=== PATIENT | male | born 1990 | race African-American/Black ===

== ENCOUNTER → 2016-09-10 | Outpatient (CLI) | payer MEDICAID | LOC: OD 12:30 | PROVIDERS: ATTEND Physician Assistant | DX: R05 Cough (principal) | CPT/HCPCS: 71020 ==

== ENCOUNTER 2019-04-01 05:36 | Emergency (ER) | payer MEDICAID ==
[2019-04-01] MEDS ORDERED: ONDANSETRON HCL INJ/PF 4 MG/2 ML SDV IV ONE (06:30)
[2019-04-01] MEDS ORDERED: NORMAL SALINE 1000 ML 1,000 ML IV ONE ×2 (06:30→09:35)
[2019-04-01 08:18] LABS: APPEARANCE,URINE SLIGHTLY-CLOUDY; BILIRUBIN,URINE NEGATIVE (NEGATIVE); COLOR,URINE YELLOW; GLUCOSE, URINE 50 mg/dL (NEGATIVE); KETONES,URINE 80 mg/dL (NEGATIVE); LEUKOCYTE ESTERASE,URINE SMALL (NEGATIVE); NITRITE,URINE NEGATIVE (NEGATIVE); PROTEIN,URINE 100 mg/dL (NEGATIVE); URINE SPECIFIC GRAVITY 1.023; UROBILINOGEN,URINE NEGATIVE mg/dL (<2.0)
[2019-04-01 08:39] LABS: HEMATOCRIT 44.1 % (37.9-51.0); HEMOGLOBIN 14.3 g/dL (13.5-17.0); MEAN CORPUSCULAR HEMOGLOBIN 26.9 pg (27.0-33.4); MEAN CORPUSCULAR HGB CONC 32.3 g/dL (32.0-36.0); MEAN CORPUSCULAR VOLUME 83 fl (80-97); PLATELET COUNT 184 10^3/uL (150-450); RED BLOOD COUNT 5.29 10^6/uL (4.35-5.55); RED CELL DISTRIBUTION WIDTH 14.4 % (11.5-14.0); WHITE BLOOD COUNT 12.2 10^3/uL (4.0-10.5)
[2019-04-01 08:55] LABS: BAND NEUTROPHILS % (MANUAL) 1 % (3-5); BASOPHILS % (MANUAL) 0 % (0-2); EOSINOPHILS % (MANUAL) 0 % (0-6); LYMPHOCYTES % (MANUAL) 8 % (13-45); MONOCYTES % (MANUAL) 8 % (3-13); SEGMENTED NEUTROPHILS % (MAN) 83 % (42-78); TOTAL CELLS COUNTED 100
[2019-04-01 08:58] LABS: ANISOCYTOSIS SLIGHT; OVALOCYTES SLIGHT; PLATELET COMMENT ADEQUATE; POIKILOCYTOSIS SLIGHT; POLYCHROMASIA SLIGHT; TOXIC VACUOLATION PRESENT
[2019-04-01 09:03] LABS: ALBUMIN 4.1 g/dL (3.5-5.0); ALKALINE PHOSPHATASE 83 U/L (38-126); ANION GAP 8 (5-19); ASPARTATE AMINO TRANSFERASE 22 U/L (17-59); BILIRUBIN,DIRECT 0.4 mg/dL (0.0-0.4); BILIRUBIN,TOTAL 0.8 mg/dL (0.2-1.3); BLOOD UREA NITROGEN 11 mg/dL (7-20); CALCIUM 9.3 mg/dL (8.4-10.2); CARBON DIOXIDE 26 mmol/L (22-30); CHLORIDE 104 mmol/L (98-107); GLUCOSE 104 mg/dL (75-110); POTASSIUM 4.2 mmol/L (3.6-5.0); TOTAL PROTEIN 6.6 g/dL (6.3-8.2)
[2019-04-01] MEDS ORDERED: METOCLOPRAMIDE HCL INJ/PF 10 MG/2 ML SDV IV ONE (09:34)
[2019-04-01] MEDS ORDERED: METOCLOPRAMIDE HCL INJ/PF 10 MG/2 ML SDV ONE (09:35)
[2019-04-01] MEDS ORDERED: CEFTRIAXONE 1 GM/D5W RTU 1 GM/50 ML RTUPB IV ONE (09:35)
--- NOTE | 2019-04-01 09:36 | ER Document Report ---
ED Medical Screen (RME) - General Chief Complaint: Nausea/Vomiting Stated Complaint: VOMITING Time Seen by Provider: 04/01/19 09:33 Primary Care Provider: FRANK NORTON MD [Primary Care Provider] - Follow up as needed Mode of Arrival: Ambulatory Information source: Patient Notes: Patient is an otherwise healthy 28-year-old male presents emergency department chief complaint of nausea, vomiting and diarrhea that started yesterday. Patient reports he has vomited at least 10 times. Patient denies any fevers. He does report left upper and lower quadrant tenderness. Exam: Mild tenderness to palpation to the left upper and left lower quadrants. At the time of my evaluation patient has Jimmie received 8 mg of Zofran, 1 L of normal saline and he has had lab work performed. He does have mildly elevated white count, no lipase was ordered, lipase added on at this time. Additional antiemetics were ordered and an additional liter of fluids. Encourage patient to stay n.p.o. until seen by main side provider. I have greeted and performed a rapid initial assessment of this patient. A comprehensive ED assessment and evaluation of the patient, analysis of test results and completion of the medical decision making process will be conducted by additional ED providers. I have specifically instructed the patient or family members with the patient to immediately return to any nursing staff should anything change in the patient's condition or with their chief complaint. This medical record was dictated with voice recognizing software. There may be grammatical, syntax errors that are unintended. TRAVEL OUTSIDE OF THE [place] IN LAST 30 DAYS: No - Related Data Allergies/Adverse Reactions: No Known Allergies Allergy (Verified 04/01/19 05:37) Past Medical History - Social History Frequency of alcohol use: Occasional Drug Abuse: None Renal/ Medical History: Denies: Hx Peritoneal Dialysis Psychiatric Medical History: Reports: Hx Depression - Immunizations Immunizations up to date: Yes Hx Diphtheria, Pertussis, Tetanus Vaccination: No Physical Exam - Vital signs Vitals: Pulse Resp BP Pulse Ox 89 28 H 140/67 H 100 04/01/19 05:40 04/01/19 05:40 04/01/19 05:40 04/01/19 05:40 Course - Vital Signs Vital signs: Temp Pulse Resp BP Pulse Ox 89 28 H 140/67 H 100 04/01/19 05:40 04/01/19 05:40 04/01/19 05:40 04/01/19 05:40 - Laboratory Result Diagrams: 04/01/19 08:20 04/01/19 08:20 Laboratory results interpreted by me: 04/01/19 04/01/19 08:00 08:20 WBC 12.2 H MCH 26.9 L RDW 14.4 H Seg Neuts % (Manual) 83 H Band Neutrophils % 1 L Lymphocytes % (Manual) 8 L Abs Neuts (Manual) 10.2 H Urine Protein 100 H Urine Glucose (UA) 50 H Urine Ketones 80 H Ur Leukocyte Esterase SMALL H Doctor's Discharge - Discharge Referrals: FRANK NORTON MD [Primary Care Provider] - Follow up as needed
[2019-04-01] MEDS ORDERED: LORAZEPAM INJ 2 MG/1 ML VIAL IV ONE (10:20)
[2019-04-01] MEDS ORDERED: DEXTROSE 5%-LACTATED RINGERS 1,000 ML IV ONE (10:20)
--- NOTE | 2019-04-01 11:24 | ER Document Report ---
ED GI/ - General Chief Complaint: Nausea/Vomiting Stated Complaint: VOMITING Time Seen by Provider: 04/01/19 09:33 Primary Care Provider: FRANK NORTON MD [Primary Care Provider] - Follow up as needed Mode of Arrival: Ambulatory Information source: Patient, [facility] Records Notes: This 28-year-old male patient comes emergency room complaining of nausea vomiting abdominal pain. He reports his upper abdomen began hurting 2 days ago and the vomiting started last night. He reports he has had 6 episodes of diarrhea since yesterday evening. There is no history of fever. TRAVEL OUTSIDE OF THE [place] IN LAST 30 DAYS: No - Related Data Allergies/Adverse Reactions: No Known Allergies Allergy (Verified 04/01/19 05:37) Past Medical History - General Information source: Patient, [facility] Records - Social History Smoking Status: Current Every Day Smoker Cigarette use (# per day): Yes - 1 PPD Chew tobacco use (# tins/day): No Smoking Education Provided: No Frequency of alcohol use: Occasional Drug Abuse: None Lives with: Friend Family History: Reviewed & Not Pertinent Patient has suicidal ideation: No Patient has homicidal ideation: No Psychiatric Medical History: Reports: Hx Depression Past Surgical History: Reports: None - Immunizations Immunizations up to date: Yes Hx Diphtheria, Pertussis, Tetanus Vaccination: No Review of Systems - Review of Systems Constitutional: No symptoms reported EENT: No symptoms reported Cardiovascular: No symptoms reported Respiratory: No symptoms reported Gastrointestinal: See HPI Musculoskeletal: No symptoms reported Skin: No symptoms reported Hematologic/Lymphatic: No symptoms reported Neurological/Psychological: No symptoms reported Physical Exam - Vital signs Vitals: Pulse Resp BP Pulse Ox 89 28 H 140/67 H 100 04/01/19 05:40 04/01/19 05:40 04/01/19 05:40 04/01/19 05:40 Interpretation: Normal - General General appearance: Alert, Anxious In distress: Moderate Notes: Patient is actively vomiting up liquid and retching. He periodically will calm down and converse, and then began stiffening up and shaking his entire body and seeming unable to talk. - HEENT Head: Normocephalic, Atraumatic Eyes: Normal Pupils: PERRL Neck: Normal - Respiratory Respiratory status: No respiratory distress Breath sounds: Normal - Cardiovascular Rhythm: Regular Heart sounds: Normal auscultation Murmur: No - Abdominal Inspection: Normal Distension: No distension Bowel sounds: Normal Tenderness: Nontender - Back Back: Normal - Extremities General upper extremity: Normal inspection General lower extremity: Normal inspection - Neurological Neuro grossly intact: Yes - Psychological Associated symptoms: Normal affect, Normal mood Course - Re-evaluation Re-evalutation: 04/01/19 11:26 Has settled down quite a bit at this time. His abdomen remains tender in the epigastric region. We will try a GI cocktail and then reevaluate. 04/01/19 12:11 Patient was sleeping after GI cocktail. He is awake and and his epigastric reg ion is not tender now. His urine drug screen is positive for marijuana. His initial vomiting and behavior was quite suspicious for cannabinoid hyperemesis syndrome. - Vital Signs Vital signs: Temp Pulse Resp BP Pulse Ox 89 28 H 140/67 H 100 04/01/19 05:40 04/01/19 05:40 04/01/19 05:40 04/01/19 05:40 - Laboratory Result Diagrams: 04/01/19 08:20 04/01/19 08:20 Laboratory results interpreted by me: 04/01/19 04/01/19 08:00 08:20 WBC 12.2 H MCH 26.9 L RDW 14.4 H Seg Neuts % (Manual) 83 H Band Neutrophils % 1 L Lymphocytes % (Manual) 8 L Abs Neuts (Manual) 10.2 H Urine Protein 100 H Urine Glucose (UA) 50 H Urine Ketones 80 H Ur Leukocyte Esterase SMALL H Discharge - Discharge Clinical Impression: Cannabinoid hyperemesis syndrome GERD (gastroesophageal reflux disease) Qualifiers: Esophagitis presence: esophagitis presence not specified Qualified Code(s): K21.9 - Gastro-esophageal reflux disease without esophagitis Condition: Stable Disposition: HOME, SELF-CARE Additional Instructions: Nausea or Vomiting, Nonspecific Vomiting (or nausea without vomiting) can be caused by many different problems. Of course, it can mean that something's wrong with the stomach, such as "stomach flu," ulcers, or inflammation. But it can also be a symptom of a problem that has nothing to do with the stomach or intestines. Vomiting is common with severe headaches, earaches, and tonsillitis. We see it with pneumonia or heart attacks. Drugs can cause nausea. Many abdominal problems ca use vomiting; for example, gallstones, kidney stones, pancreatitis, and intestinal obstruction (blocked bowels). In most cases, curing the vomiting depends on fixing the problem that caused it. For temporary relief, we may use an anti-nausea medicine. For home use, we can prescribe suppositories, chewable pills, pills that dissolve in the mouth, or liquid anti-nausea drugs. If the vomiting seems to be caused by a problem in the stomach, acid-suppressing drugs may be prescribed as well. It's important to avoid dehydration. Sip clear liquids. Take increasing amounts of fluid over the first 24 hours. Then start small amounts of bland foods (such as dry toast, applesauce, mashed potato). Avoid aspirin, tobacco, and alcohol. Gradually resume your usual diet. If the vomiting worsens, if the problem that's making you vomit worsens, or if there's evidence of bleeding in the stomach (such as black, tarry stool, bloody or black vomit, or lightheadedness), you should return immediately. Call your doctor if you aren't improved in 24 to 36 hours. Your evaluation today suggest that you may be suffering from cannabinoid hyperemesis syndrome. That is a phenomena where people who smoke marijuana have severe bouts of nausea vomiting and abdominal pain. The only way to stop this problem is to completely stop smoking marijuana. Take medication as prescribed for nausea. Drink cool clear liquids today, eat a bland diet. Take antacids between meals for the next few days. Take Prilosec OTC once daily for the next several days. Follow-up with your primary care provider if not improving. RETURN TO THE EMERGENCY ROOM IF ANY NEW OR WORSENING SYMPTOMS. Prescriptions: Metoclopramide HCl [Reglan 10 mg Tablet] 1 tab PO ASDIR PRN #15 tablet PRN Reason: Referrals: FRANK NORTON MD [Primary Care Provider] - Follow up as needed
[2019-04-01] MEDS ORDERED: LIDOCAINE 2% VISCOUS SOLN 20 ML UDCUP PO ONE (11:25)
[2019-04-01] MEDS ORDERED: MAG HYDROX/AL HYDROX/SIMETH SUSP 30 ML UDCUP PO ONE (11:25)
[2019-04-01 11:52] LABS: URINE AMPHETAMINES SCREEN NEGATIVE; URINE BARBITURATES SCREEN NEGATIVE; URINE BENZODIAZEPINES SCREEN NEGATIVE; URINE COCAINE SCREEN NEGATIVE; URINE MARIJUANA (THC) SCREEN UNCONFIRMED POSITIVE; URINE METHADONE SCREEN NEGATIVE; URINE PHENCYCLIDINE SCREEN NEGATIVE
[2019-04-01 12:32] VITALS: BP 132/56
== END 2019-04-01 12:36 | disposition home or self-care (01) ==
LOC: ER 05:36
DX: F12.988 Cannabis use, unspecified with other cannabis-induced disorder (principal); R11.2 Nausea with vomiting, unspecified; K21.9 Gastro-esophageal reflux disease without esophagitis; R10.10 Upper abdominal pain, unspecified; R10.816 Epigastric abdominal tenderness; R19.7 Diarrhea, unspecified; F17.210 Nicotine dependence, cigarettes, uncomplicated
CPT/HCPCS: 36415; 83690; 85025; 80053; 81001; 80307; J3490 ×2; J2060; J2405; J7121; J7030; J0696; 96361; 96365; 96375; 99284; J2765

== ENCOUNTER 2019-04-06 01:53 | Emergency (ER) | payer MEDICAID, OTHER ==
[2019-04-06] MEDS ORDERED: ONDANSETRON HCL INJ/PF 4 MG/2 ML SDV IV ONE (02:54)
[2019-04-06] MEDS ORDERED: NORMAL SALINE 1000 ML 1,000 ML IV ONE (02:54)
--- NOTE | 2019-04-06 02:56 | ER Document Report ---
ED Medical Screen (RME) - General Chief Complaint: Vomiting Stated Complaint: VOMITTING, DIARRHEA Time Seen by Provider: 04/06/19 02:54 Primary Care Provider: FRANK NORTON MD [Primary Care Provider] - Follow up as needed Notes: 28-year-old male, chief complaint of persistent vomiting today and several loose stools. He complains of left upper quadrant pain, he points. He states he thinks he ate questionable food that gave him food poisoning. Family states he cannot keep anything down. Denies hematemesis or hematochezia, denies fever. Denies any surgeries or diagnosed medical problems. He states he had the same thing 5 days ago and he ate something similar. TRAVEL OUTSIDE OF THE [place] IN LAST 30 DAYS: No - Related Data Allergies/Adverse Reactions: No Known Allergies Allergy (Verified 04/01/19 05:37) Past Medical History Renal/ Medical History: Denies: Hx Peritoneal Dialysis Psychiatric Medical History: Reports: Hx Depression - Immunizations Immunizations up to date: Yes Hx Diphtheria, Pertussis, Tetanus Vaccination: No Physical Exam - Vital signs Vitals: Temp Pulse Resp BP Pulse Ox 98.7 F 90 28 H 142/70 H 99 04/06/19 02:01 04/06/19 02:01 04/06/19 02:01 04/06/19 02:01 04/06/19 02:01 - Abdominal Tenderness: Tender - Mild generalized tenderness, worse in the left upper quadrant Course - Re-evaluation Re-evalutation: I have greeted and performed a rapid initial assessment of this patient. A comprehensive ED assessment and evaluation of the patient, analysis of test results and completion of the medical decision making process will be conducted by additional ED providers. - Vital Signs Vital signs: Temp Pulse Resp BP Pulse Ox 98.7 F 90 28 H 142/70 H 99 04/06/19 02:01 04/06/19 02:01 04/06/19 02:01 04/06/19 02:01 04/06/19 02:01 Doctor's Discharge - Discharge Referrals: FRANK NORTON MD [Primary Care Provider] - Follow up as needed
[2019-04-06 03:41] LABS: ABSOLUTE LYMPHOCYTES (AUTO) 1.2 10^3/uL (0.5-4.7); ABSOLUTE MONOCYTES (AUTO) 1.5 10^3/uL (0.1-1.4); ABSOLUTE NEUT (AUTO) 6.6 10^3/uL (1.7-8.2); BASOPHILS % (AUTO) 0.2 % (0-2); HEMATOCRIT 48.9 % (37.9-51.0); HEMOGLOBIN 16.3 g/dL (13.5-17.0); LYMPHOCYTES % (AUTO) 12.4 % (13-45); MEAN CORPUSCULAR HEMOGLOBIN 27.3 pg (27.0-33.4); MEAN CORPUSCULAR HGB CONC 33.3 g/dL (32.0-36.0); MEAN CORPUSCULAR VOLUME 82 fl (80-97); MONOCYTES % (AUTO) 16.1 % (3-13); PLATELET COUNT 243 10^3/uL (150-450); RED BLOOD COUNT 5.96 10^6/uL (4.35-5.55); RED CELL DISTRIBUTION WIDTH 14.2 % (11.5-14.0); SEGMENTED NEUTROPHILS % (AUTO) 71.3 % (42-78); TOTAL CELLS COUNTED % (AUTO) 100 %; WHITE BLOOD COUNT 9.3 10^3/uL (4.0-10.5)
[2019-04-06 03:55] LABS: ALBUMIN 4.5 g/dL (3.5-5.0); ALKALINE PHOSPHATASE 100 U/L (38-126); ANION GAP 16 (5-19); ASPARTATE AMINO TRANSFERASE 21 U/L (17-59); BILIRUBIN,DIRECT 0.3 mg/dL (0.0-0.4); BLOOD UREA NITROGEN 11 mg/dL (7-20); CALCIUM 10.1 mg/dL (8.4-10.2); CARBON DIOXIDE 24 mmol/L (22-30); CHLORIDE 97 mmol/L (98-107); GLUCOSE 108 mg/dL (75-110); POTASSIUM 3.5 mmol/L (3.6-5.0); TOTAL PROTEIN 6.9 g/dL (6.3-8.2)
[2019-04-06] MEDS ORDERED: HYDROCODONE/ACETAMINOPHEN 5-325 MG TABLET PO ONE (05:19)
[2019-04-06] MEDS ORDERED: SUCRALFATE 1 GM TABLET PO ONE (05:19)
[2019-04-06] MEDS ORDERED: PROMETHAZINE HCL 25 MG TABLET PO ONE (05:19)
--- NOTE | 2019-04-06 06:25 | ER Document Report ---
ED GI/ - General Chief Complaint: Vomiting Stated Complaint: VOMITTING, DIARRHEA Time Seen by Provider: 04/06/19 02:54 Primary Care Provider: FRANK NORTON MD [Primary Care Provider] - Follow up as needed Notes: Patient is a 28-year-old male, chief complaint of persistent vomiting today and several loose stools. He complains of left upper quadrant pain, he points. He states he thinks he ate questionable food that gave him food poisoning. Family states he cannot keep anything down. Denies hematemesis or hematochezia, denies fever. Denies any surgeries or diagnosed medical problems. He states he had the same thing 5 days ago and he ate something similar. He does smoke marijuana, no other recreational drugs reported. TRAVEL OUTSIDE OF THE [place] IN LAST 30 DAYS: No - Related Data Allergies/Adverse Reactions: No Known Allergies Allergy (Verified 04/01/19 05:37) Past Medical History - General Information source: Patient - Social History Smoking Status: Unknown if Ever Smoked Frequency of alcohol use: None Drug Abuse: Marijuana Lives with: Family Family History: Reviewed & Not Pertinent Patient has suicidal ideation: No Patient has homicidal ideation: No Renal/ Medical History: Denies: Hx Peritoneal Dialysis Psychiatric Medical History: Reports: Hx Depression - Immunizations Immunizations up to date: Yes Hx Diphtheria, Pertussis, Tetanus Vaccination: No Review of Systems - Review of Systems Constitutional: No symptoms reported EENT: No symptoms reported Cardiovascular: No symptoms reported Respiratory: No symptoms reported Gastrointestinal: See HPI Genitourinary: No symptoms reported Male Genitourinary: No symptoms reported Musculoskeletal: No symptoms reported Skin: No symptoms reported Hematologic/Lymphatic: No symptoms reported Neurological/Psychological: No symptoms reported Physical Exam - Vital signs Vitals: Temp Pulse Resp BP Pulse Ox 98.7 F 90 28 H 142/70 H 99 04/06/19 02:01 04/06/19 02:01 04/06/19 02:01 04/06/19 02:01 04/06/19 02:01 - Notes Notes: GENERAL: Alert, interacts well. No acute distress. HEAD: Normocephalic, atraumatic. EYES: Pupils equal, round, and reactive to light. Extraocular movements intact. ENT: Oral mucosa dry, tongue midline. Oropharynx unremarkable. Airway patent. LUNGS: Clear to auscultation bilaterally, no wheezes, rales, or rhonchi. No respiratory distress. HEART: Regular rate and rhythm. No murmur ABDOMEN: Left upper quadrant tenderness, remaining abdomen is soft and benign. No guarding or rigidity. GENITOURINARY: Deferred EXTREMITIES: Moves all 4 extremities spontaneously. No edema, normal radial and dorsalis pedis pulses bilaterally. No cyanosis. BACK: no cervical, thoracic, lumbar midline tenderness. No saddle anesthesia, normal distal neurovascular exam. Moves all extremities in full range of motion. NEUROLOGICAL: Alert and oriented x3. Normal speech. Cranial nerves II through XII grossly intact. PSYCH: Normal affect, normal mood. SKIN: Warm, dry, normal turgor. No rashes or lesions noted. Course - Re-evaluation Re-evalutation: Patient was vomiting in triage. After IV fluids and Zofran this completely resolved. He does have some left upper quadrant tenderness on his examination but otherwise his abdomen is soft and benign. CBC unremarkable, chemistry and lipase unremarkable. Patient sleeping on reevaluation. Patient was seen here for similar symptoms recently, it was suspected that patient has cyclic vomiting syndrome. Patient actually had easy resolution of his symptoms, the patient at least has a component of gastritis I suspect, I did discuss treatment of this. Patient did have specific questions about this, he was somewhat surprised about the precautions that he should take against this while recovering, he does state understanding and agreement with plan, he was cautioned about marijuana and cyclic vomiting syndrome as well. Patient drank more than a cup of fluid without difficulty and took p.o. medications. Stable at time of discharge. - Vital Signs Vital signs: Temp Pulse Resp BP Pulse Ox 98.6 F 60 12 104/48 L 97 04/06/19 06:30 04/06/19 06:30 04/06/19 06:30 04/06/19 06:30 04/06/19 06:30 - Laboratory Result Diagrams: 04/06/19 03:24 04/06/19 03:24 Laboratory results interpreted by me: 04/06/19 04/06/19 03:24 03:24 RBC 5.96 H RDW 14.2 H Lymphocytes % 12.4 L Monocytes % 16.1 H Absolute Monocytes 1.5 H Potassium 3.5 L Chloride 97 L Discharge - Discharge Clinical Impression: Left upper quadrant pain Vomiting Qualifiers: Vomiting type: unspecified Vomiting Intractability: non-intractable Nausea presence: with nausea Qualified Code(s): R11.2 - Nausea with vomiting, unspecified Condition: Stable Disposition: HOME, SELF-CARE Additional Instructions: Your symptoms and examination indicate gastritis/esophagitis (inflammation of your upper gastrointestinal tract). Take Phenergan for nausea, take Carafate and Pepcid as prescribed to help treat this, you can take additional Rolaids, Tums, Maalox, etc. if needed. You can take Tylenol for pain. Avoid NSAIDs, alcohol, smoking, caffeine, spicy food. Avoid marijuana because this can cause a return of the vomiting. Start with clear fluids, progress to bland diet. Follow-up with primary care for additional evaluation and treatment including possible H. pylori testing. Return if you worsen including uncontrolled vomiti ng, vomiting blood, black stools, severe pain, fever of 100.4 or greater, or any other concerning or worsening symptoms. Prescriptions: Famotidine [Pepcid 20 mg Tablet] 20 mg PO BID #20 tablet Promethazine HCl [Phenergan 25 mg Tablet] 25 mg PO Q6H PRN #15 tablet PRN Reason: Sucralfate [Carafate 1 gm Tablet] 1 gm PO QID #20 tablet Forms: Return to Work Referrals: FRANK NORTON MD [Primary Care Provider] - Follow up as needed
[2019-04-06 06:35] VITALS: BP 104/48
== END 2019-04-06 06:45 | disposition home or self-care (01) ==
LOC: ER 01:53
DX: R11.2 Nausea with vomiting, unspecified (principal); R10.12 Left upper quadrant pain; R10.812 Left upper quadrant abdominal tenderness; R19.4 Change in bowel habit; F12.10 Cannabis abuse, uncomplicated
CPT/HCPCS: 36415; 83690; 85025; 80053; J3490 ×2; J2405; J7030; 96361; 96374; 99284

== ENCOUNTER 2019-05-20 21:09 | Emergency (ER) | payer MEDICAID ==
[2019-05-20] MEDS ORDERED: ONDANSETRON HCL INJ/PF 4 MG/2 ML SDV IV ONE (22:03)
[2019-05-20] MEDS ORDERED: NORMAL SALINE 1000 ML 1,000 ML IV ONE (22:03)
--- NOTE | 2019-05-20 22:03 | ER Document Report ---
ED Medical Screen (RME) - General Chief Complaint: Abdominal Pain Stated Complaint: ABDOMINAL PAIN Time Seen by Provider: 05/20/19 21:58 Primary Care Provider: FRANK NORTON MD [Primary Care Provider] - Follow up as needed Mode of Arrival: Ambulatory Information source: Patient - No so the whole left Notes: 28-year-old male presented to ED for complaint of left abdominal pain upper and lower since 3:00 this morning. He states he has had nausea and vomited x3 and diarrhea stools x8 or 9 since 3 AM. He states he ate last at [employer] about 8:00 last night at bedtime. He states he ate [place] fried chicken potatoes and turnip greens. His friend also ate a [employer] but he ate something different he has not been sick. Any fevers he states he has had chills but no fevers. Patient denies smoking drinking or use of any drugs. He states he has a history of gastrointestinal problems and is scheduled to get a colonoscopy and endoscopy on 24 May. I have greeted and performed a rapid initial assessment of this patient. A comprehensive ED assessment and evaluation of the patient, analysis of test results and completion of medical decision making process will be conducted by an additional ED providers. TRAVEL OUTSIDE OF THE [place] IN LAST 30 DAYS: No - Related Data Allergies/Adverse Reactions: No Known Allergies Allergy (Verified 04/01/19 05:37) Past Medical History Renal/ Medical History: Denies: Hx Peritoneal Dialysis Psychiatric Medical History: Reports: Hx Depression - Immunizations Immunizations up to date: Yes Hx Diphtheria, Pertussis, Tetanus Vaccination: No Physical Exam - Vital signs Vitals: Temp Pulse Resp BP Pulse Ox 98.3 F 107 H 22 H 141/78 H 98 05/20/19 21:31 05/20/19 21:31 05/20/19 21:31 05/20/19 21:31 05/20/19 21:31 Course - Vital Signs Vital signs: Temp Pulse Resp BP Pulse Ox 98.3 F 107 H 22 H 141/78 H 98 05/20/19 21:31 05/20/19 21:31 05/20/19 21:31 05/20/19 21:31 05/20/19 21:31 Doctor's Discharge - Discharge Referrals: FRANK NORTON MD [Primary Care Provider] - Follow up as needed
[2019-05-20 23:44] LABS: ABSOLUTE LYMPHOCYTES (AUTO) 1.2 10^3/uL (0.5-4.7); ABSOLUTE MONOCYTES (AUTO) 0.9 10^3/uL (0.1-1.4); ABSOLUTE NEUT (AUTO) 10.3 10^3/uL (1.7-8.2); BASOPHILS % (AUTO) 0.3 % (0-2); EOSINOPHILS % (AUTO) 0.3 % (0-6); HEMATOCRIT 46.6 % (37.9-51.0); HEMOGLOBIN 15.2 g/dL (13.5-17.0); MEAN CORPUSCULAR HEMOGLOBIN 26.9 pg (27.0-33.4); MEAN CORPUSCULAR HGB CONC 32.6 g/dL (32.0-36.0); MEAN CORPUSCULAR VOLUME 82 fl (80-97); MONOCYTES % (AUTO) 6.8 % (3-13); PLATELET COUNT 262 10^3/uL (150-450); RED BLOOD COUNT 5.65 10^6/uL (4.35-5.55); RED CELL DISTRIBUTION WIDTH 14.7 % (11.5-14.0); SEGMENTED NEUTROPHILS % (AUTO) 82.6 % (42-78); TOTAL CELLS COUNTED % (AUTO) 100 %; WHITE BLOOD COUNT 12.5 10^3/uL (4.0-10.5)
[2019-05-20 23:56] LABS: ALBUMIN 4.8 g/dL (3.5-5.0); ALKALINE PHOSPHATASE 130 U/L (38-126); ANION GAP 11 (5-19); ASPARTATE AMINO TRANSFERASE 109 U/L (17-59); BILIRUBIN,DIRECT 0.2 mg/dL (0.0-0.4); BILIRUBIN,TOTAL 0.6 mg/dL (0.2-1.3); BLOOD UREA NITROGEN 13 mg/dL (7-20); CALCIUM 10.2 mg/dL (8.4-10.2); CARBON DIOXIDE 29 mmol/L (22-30); CHLORIDE 99 mmol/L (98-107); GLUCOSE 102 mg/dL (75-110)
[2019-05-21] MEDS ORDERED: FENTANYL CITRATE INJ/PF 100 MCG/2 ML AMPUL IV ONE (00:08)
[2019-05-21 00:53] LABS: APPEARANCE,URINE SLIGHTLY-CLOUDY; BILIRUBIN,URINE NEGATIVE (NEGATIVE); COLOR,URINE YELLOW; GLUCOSE, URINE NEGATIVE (NEGATIVE); KETONES,URINE 80 mg/dL (NEGATIVE); LEUKOCYTE ESTERASE,URINE NEGATIVE (NEGATIVE); NITRITE,URINE NEGATIVE (NEGATIVE); PROTEIN,URINE 30 mg/dL (NEGATIVE); URINE SPECIFIC GRAVITY 1.029
--- NOTE | 2019-05-21 02:17 | RADIOLOGY REPORT (SQ) ---
EXAM: Ultrasound abdomen limited CLINICAL DATA: 28-year-old male with abdominal pain. TECHNICAL DATA: Limited sonographic imaging of the right upper quadrant was performed on 05/21/2019 at 1:11 AM. Comparison: None. FINDINGS: The liver is normal in size and configuration. The liver demonstrates normal echogenicity. There is a small, avascular 1.8 x 1.2 x 1.5 cm focal area of increased echogenicity in the right hepatic lobe likely representing a small hepatic hemangioma. Doppler imaging reveals patency of the portal vein and normal hepatopedal flow. The gallbladder is well distended and normal in appearance. There is no evidence of cholelithiasis. There is no evidence of gallbladder wall thickening. The gallbladder wall measures 1.3 mm in diameter. There is no pericholecystic fluid or positive sonographic Soto sign as per the technologist. There is no evidence of biliary ductal dilatation. The common bile duct measures 1.4 mm in diameter. The right kidney is normal in size, shape and echogenicity without hydronephrosis or definite nephrolithiasis. The right kidney measures 11.2 x 5.3 x 6.4 cm. There is no evidence of free fluid in the abdomen. The pancreas is grossly normal in size, shape and echogenicity. The aorta is normal in caliber and contour and tapers distally. The inferior vena cava is grossly unremarkable as visualized. IMPRESSION: 1. Small avascular focal area of increased echogenicity in the right hepatic lobe with a maximum dimension of 1.8 cm likely representing a hemangioma. 2. No evidence of acute gallbladder pathology. 3. Otherwise, unremarkable right upper quadrant ultrasound.
[2019-05-21] MEDS ORDERED: FAMOTIDINE INJ/PF 20 MG/2 ML SDV IV ONE (02:52)
[2019-05-21] MEDS ORDERED: PROMETHAZINE HCL INJ 25 MG/1 ML VIAL IV ONE (02:52)
--- NOTE | 2019-05-21 04:06 | ER Document Report ---
ED GI/ - General Chief Complaint: Abdominal Pain Stated Complaint: ABDOMINAL PAIN Time Seen by Provider: 05/20/19 21:58 Primary Care Provider: FRANK NORTON MD [Primary Care Provider] - Follow up as needed Mode of Arrival: Ambulatory Notes: DELLAThien HPI: 28-year-old male presented to ED for complaint of left abdominal pain upper and lower since 3:00 this morning. He states he has had nausea and vomited x3 and diarrhea stools x8 or 9 since 3 AM. He states he ate last at [employer] about 8:00 last night at bedtime. He states he ate [place] fried chicken potatoes and turnip greens. His friend also ate a [employer]rel but he ate something different he has not been sick. Any fevers he states he has had chills but no fevers. Patient denies smoking drinking or use of any drugs. He states he has a history of gastrointestinal problems and is scheduled to get a colonoscopy and endoscopy on 24 May. MY HPI: Patient has been treated with the Zofran upon my assessment. He is dry heaving with bowel noted in emesis basin. Patient voices he has had intermittent epigastric abdominal pain for the last 3 months. States he does have an appointment with gastroenterology for an endoscopy and colonoscopy but they are not until May 24. Patient voices he was told that his vomiting was due to "smoking too much weed." Patient voices he no longer uses marijuana. Patient voices he feels as though this evening he may have had food poisoning after eating at [employer]. Patient's complaining of generalized epigastric abdominal pain upon assessment. Patient voices that he also had 2 episodes of diarrhea today. Patient voices "it was basically black." Patient denies the use of Pepto-Bismol or any other [id number] antidiarrheal or nausea medications. TRAVEL OUTSIDE OF THE [place] IN LAST 30 DAYS: No - Related Data Allergies/Adverse Reactions: No Known Allergies Allergy (Verified 04/01/19 05:37) Past Medical History - General Information source: Patient - Social History Smoking Status: Never Smoker Frequency of alcohol use: None Drug Abuse: None Family History: Reviewed & Not Pertinent Patient has suicidal ideation: No Patient has homicidal ideation: No Renal/ Medical History: Denies: Hx Peritoneal Dialysis Psychiatric Medical History: Reports: Hx Depression - Immunizations Immunizations up to date: Yes Hx Diphtheria, Pertussis, Tetanus Vaccination: No Review of Systems - Review of Systems Constitutional: denies: Fever EENT: No symptoms reported Cardiovascular: No symptoms reported Respiratory: No symptoms reported Gastrointestinal: See HPI Genitourinary: No symptoms reported Male Genitourinary: No symptoms reported Musculoskeletal: No symptoms reported Skin: No symptoms reported Hematologic/Lymphatic: No symptoms reported Neurological/Psychological: No symptoms reported Physical Exam - Vital signs Vitals: Temp Pulse Resp BP Pulse Ox 98.3 F 107 H 22 H 141/78 H 98 05/20/19 21:31 05/20/19 21:31 05/20/19 21:31 05/20/19 21:31 05/20/19 21:31 - Notes Notes: GENERAL: Alert, interacts well. No acute distress. HEAD: Normocephalic, atraumatic. EYES: Pupils equal, round, and reactive to light. Extraocular movements intact. ENT: Oral mucosa moist, tongue midline. NECK: Full range of motion. Supple. Trachea midline. LUNGS: Clear to auscultation bilaterally, no wheezes, rales, or rhonchi. No respiratory distress. HEART: Regular rate and rhythm. No murmur ABDOMEN: Soft, generalized epigastric abdominal pain. Otherwise abdominal exam benign, non-distended. Bowel sounds present in all 4 quadrants. EXTREMITIES: Moves all 4 extremities spontaneously. No edema, normal radial and dorsalis pedis pulses bilaterally. No cyanosis. BACK: no cervical, thoracic, lumbar midline tenderness. No saddle anesthesia, normal distal neurovascular exam. No CVA tenderness noted bilaterally. NEUROLOGICAL: Alert and oriented x3. Normal speech. cranial nerves II through XII grossly intact PSYCH: Normal affect, normal mood. SKIN: Warm, dry, normal turgor. No rashes or lesions noted. Genitalia: Fur Comber Maryam BERNAL, no anal fissures, no exterior hemorrhoids noted, no obvious melena noted on rectal exam. Guaiac negative for occult blood. Course - Re-evaluation Re-evalutation: Laboratory 05/20/19 05/20/19 05/21/19 23:37 23:37 00:30 WBC 12.5 H RBC 5.65 H Hgb 15.2 Hct 46.6 MCV 82 MCH 26.9 L MCHC 32.6 RDW 14.7 H Plt Count 262 Lymph % (Auto) 10.0 L Glynn % (Auto) 6.8 Eos % (Auto) 0.3 Baso % (Auto) 0.3 Absolute Neuts (auto) 10.3 H Absolute Lymphs (auto) 1.2 Absolute Monos (auto) 0.9 Absolute Eos (auto) 0.0 Absolute Basos (auto) 0.0 Seg Neutrophils % 82.6 H Sodium 138.7 Potassium 4.0 Chloride 99 Carbon Dioxide 29 Anion Gap 11 BUN 13 Creatinine 0.85 Est GFR ( Amer) > 60 Est GFR (MDRD) Non-Af > 60 Glucose 102 Calcium 10.2 Total Bilirubin 0.6 Direct Bilirubin 0.2 Neonat Total Bilirubin Not Reportable Neonat Direct Bilirubin Not Reportable Neonat Indirect Bili Not Reportable AST 109 H ALT 152 Alkaline Phosphatase 130 H Total Protein 8.0 Albumin 4.8 Lipase 48.1 Urine Color YELLOW Urine Appearance SLIGHTLY-CLOUDY Urine pH 5.0 Ur Specific Chester 1.029 Urine Protein 30 H Urine Glucose (UA) NEGATIVE Urine Ketones 80 H Urine Blood NEGATIVE Urine Nitrite NEGATIVE Urine Bilirubin NEGATIVE Urine Urobilinogen 2.0 H Ur Leukocyte Esterase NEGATIVE Urine WBC (Auto) 1 Urine RBC (Auto) 7 Squamous Epi Cells Auto <1 Urine Mucus (Auto) MANY Urine Ascorbic Acid 20 H POC Stool Occult Blood 05/21/19 03:04 WBC RBC Hgb Hct MCV MCH MCHC RDW Plt Count Lymph % (Auto) Glynn % (Auto) Eos % (Auto) Baso % (Auto) Absolute Neuts (auto) Absolute Lymphs (auto) Absolute Monos (auto) Absolute Eos (auto) Absolute Basos (auto) Seg Neutrophils % Sodium Potassium Chloride Carbon Dioxide Anion Gap BUN Creatinine Est GFR ( Amer) Est GFR (MDRD) Non-Af Glucose Calcium Total Bilirubin Direct Bilirubin Neonat Total Bilirubin Neonat Direct Bilirubin Neonat Indirect Bili AST ALT Alkaline Phosphatase Total Protein Albumin Lipase Urine Color Urine Appearance Urine pH Ur Specific Chester Urine Protein Urine Glucose (UA) Urine Ketones Urine Blood Urine Nitrite Urine Bilirubin Urine Urobilinogen Ur Leukocyte Esterase Urine WBC (Auto) Urine RBC (Auto) Squamous Epi Cells Auto Urine Mucus (Auto) Urine Ascorbic Acid POC Stool Occult Blood NEGATIVE Abdomen Ultrasound 05/21/19 00:00 IMPRESSION: 1. Small avascular focal area of increased echogenicity in the right hepatic lobe with a maximum dimension of 1.8 cm likely representing a hemangioma. 2. No evidence of acute gallbladder pathology. 3. Otherwise, unremarkable right upper quadrant ultrasound. Leukocytosis likely due to vomiting, urine is concentrated with an elevated specific gravity, treated with normal saline solution in the emergency room. Patient continues to dry heave despite Zofran administration. Pepcid and Phenergan ordered by myself. Upon reassessment patient is sleeping comfortably, easily arousable to verbal stimuli. Voices he feels better. Patient continues to be non-tachycardic, not hypotensive, afebrile, stable for discharge and follow-up with gastroenterology as discussed. Patient voices at times overall Phenergan does not work. States he has used suppository Phenergan in the past. Patient is requesting suppository Phenergan at this time. - Vital Signs Vital signs: Temp Pulse Resp BP Pulse Ox 98.0 F 77 13 130/81 H 98 05/21/19 04:28 05/21/19 04:28 05/21/19 04:28 05/21/19 04:28 05/21/19 04:28 - Laboratory Result Diagrams: 05/20/19 23:37 05/20/19 23:37 Laboratory results interpreted by me: 05/20/19 05/20/19 05/21/19 23:37 23:37 00:30 WBC 12.5 H RBC 5.65 H MCH 26.9 L RDW 14.7 H Lymph % (Auto) 10.0 L Absolute Neuts (auto) 10.3 H Seg Neutrophils % 82.6 H AST 109 H Alkaline Phosphatase 130 H Urine Protein 30 H Urine Ketones 80 H Urine Urobilinogen 2.0 H Urine Ascorbic Acid 20 H Discharge - Discharge Clinical Impression: Nausea vomiting and diarrhea, Epigastric abdominal pain Condition: Stable Disposition: HOME, SELF-CARE Instructions: Antinausea Medication ([facility]), Diarrhea, Nonspecific ([facility]), Intravenous (IV) Fluids ([facility]), Vomiting ([facility]) Additional Instructions: As we discussed you have been seen and treated in the emergency department for your nausea, vomiting, diarrhea. Please use prescription medications only as needed. Please continue to follow-up with your primary care provider in the next 24 to 48 hours. Please also make sure you continue to follow-up with gastroenterology on May 24. Return to the emergency room for any concerns. Prescriptions: Promethazine HCl [Phenergan 25 mg Supp.rect] 1 supp WY Q6H #12 supp.rect Promethazine HCl [Phenergan 25 mg Tablet] 1 - 2 tab PO Q6H PRN #15 tablet PRN Reason: Forms: Return to Work Referrals: FRANK NORTON MD [Primary Care Provider] - Follow up as needed
[2019-05-21 04:15] LABS: URINE AMPHETAMINES SCREEN NEGATIVE; URINE BARBITURATES SCREEN NEGATIVE; URINE BENZODIAZEPINES SCREEN NEGATIVE; URINE COCAINE SCREEN NEGATIVE; URINE MARIJUANA (THC) SCREEN NEGATIVE; URINE METHADONE SCREEN NEGATIVE; URINE PHENCYCLIDINE SCREEN NEGATIVE
[2019-05-21 04:29] VITALS: BP 130/81
== END 2019-05-21 04:37 | disposition home or self-care (01) ==
LOC: ER 21:09
DX: R11.2 Nausea with vomiting, unspecified (principal); R19.7 Diarrhea, unspecified; R10.12 Left upper quadrant pain; R10.32 Left lower quadrant pain; R10.13 Epigastric pain
CPT/HCPCS: 36415; 83690; 85025; 80053; 81001; 80307; 76705; J3010; J2550; J2405; J7030; S0028

== ENCOUNTER 2019-05-28 09:21 | Day surgery (SDC) | payer MEDICAID ==
[~2019-05-28 09:21] MED LIST: PROPOFOL INJ 200 MG/20 ML VIAL IV ONE
[2019-05-28 10:54] VITALS: BP 153/93
--- NOTE | 2019-05-28 11:59 | Operative Report ---
Operative Report DATE OF SURGERY: 05/28/19 Operative Report: The risks, benefits and alternatives of the procedure including the risk of bleeding, perforation requiring surgery have been explained to the patient in detail and informed consent has been obtained. The patient is taken back to the endoscopy suite and placed in a left, lateral decubital position. Timeout was called. Propofol medication is administered. Rectal examination is done which did not reveal any masses, tears or fissures. An Olympus videoscope was introduced into the patient's rectum. Scope was then carefully advanced all the way to the cecum. Cecum was identified by the usual anatomical landmarks of the ileocecal valve as well as the appendiceal office. Photodocumentation is obtained. Scope was then sequentially pulled back via the rest segments of the colon including the ascending colon, hepatic flexure, transverse colon, splenic flexure, descending colon finding to the rectosigmoid portions of the colon. Retroflexion maneuvers performed. The risks benefits and alternatives of the procedure explained to the patient in detail and informed consent is obtained.A GIF Olympus video scope was inserted into the patient's mouth and hypopharynx ,the esophagus is identified intubated and insufflated, the scope was then advanced through the esophagus stomach and duodenum ,retroflexion maneuver is done, the esophagus stomach and first and second portions of the duodenum examined. PREOPERATIVE DIAGNOSIS: Change in bowel habits. Dyspepsia/GERD POSTOPERATIVE DIAGNOSIS: Inflammation noted on the right-hand side of the colon status post biopsy. Gastritis status post biopsy OPERATION: Colonoscopy biopsy. EGD with biopsy SURGEON: HAVEN ELISE ANESTHESIA: LMAC TISSUE REMOVED OR ALTERED: As noted above. COMPLICATIONS: None. ESTIMATED BLOOD LOSS: None. INTRAOPERATIVE FINDINGS: As noted above. PROCEDURE: Patient tolerated the procedure well. No immediate postprocedure complications are noted. Patient is discharged in good condition. Discharge date 05/28/2019. Discharge diet: Regular. Discharge activity: Regular. 2 to 3-week follow-up to discuss findings. Patient is instructed to call the office or proceed to the emergency room should there be any further problems or questions. Wait on the pathology.
== END 2019-05-28 10:55 | disposition home or self-care (01) ==
LOC: END 09:21
PROVIDERS: ATTEND Internal Medicine Gastroenterology
DX: K52.9 Noninfective gastroenteritis and colitis, unspecified (principal); K29.50 Unspecified chronic gastritis without bleeding
CPT/HCPCS: 43239; 45380; 88342 ×2; 88305 ×2; 00813; J2704; 813

== ENCOUNTER 2019-06-20 18:09 | Emergency (ER) | payer MEDICAID ==
[2019-06-20] MEDS ORDERED: HYDROCODONE/ACETAMINOPHEN 5-325 MG TABLET PO ONE (18:39)
[2019-06-20] MEDS ORDERED: IBUPROFEN 800 MG TABLET PO ONE (18:39)
--- NOTE | 2019-06-20 18:43 | ER Document Report ---
ED Medical Screen (RME) - General Chief Complaint: Testicular Lump Stated Complaint: TOOTHACHE Time Seen by Provider: 06/20/19 18:23 Primary Care Provider: HAVEN ELISE MD [Primary Care Provider] - Follow up as needed Notes: Patient is a 29-year-old male who presents to the emergency department with a chief complaint of dental pain and right scrotal pain. Patient reports he has had a broken tooth with exposed nerve for years. Patient reports over the past few days the pain is gotten worse. Patient denies facial swelling, fever, difficulty breathing or swallowing. Patient also complains of right upper scrotal pain. Patient reports he noticed a lump to the right upper scrotum about 3 days ago. He reports is extremely tender. Patient reports he did have a scrotal abscess in the past before and never returned for the packing. Patient states he went to take the packing out in a part of it was still left in place. Patient states he thinks there could be packing that his left inside. Patient denies drainage. TRAVEL OUTSIDE OF THE [place] IN LAST 30 DAYS: No - Related Data Allergies/Adverse Reactions: No Known Allergies Allergy (Verified 05/28/19 09:28) Past Medical History - Past Medical History Cardiac Medical History: Denies: Hx Coronary Artery Disease, Hx Heart Attack, Hx Hypertension Pulmonary Medical History: Denies: Hx Asthma, Hx Bronchitis, Hx COPD, Hx Pneumonia Neurological Medical History: Denies: Hx Cerebrovascular Accident, Hx Seizures Renal/ Medical History: Denies: Hx Peritoneal Dialysis Musculoskeltal Medical History: Denies Hx Arthritis Psychiatric Medical History: Reports: Hx Depression - Immunizations Immunizations up to date: Yes Hx Diphtheria, Pertussis, Tetanus Vaccination: No Physical Exam - Vital signs Vitals: Temp Pulse Resp BP Pulse Ox 98.6 F 95 16 118/57 L 100 06/20/19 18:14 06/20/19 18:14 06/20/19 18:14 06/20/19 18:14 06/20/19 18:14 Course - Re-evaluation Re-evalutation: 06/20/19 18:43 I have greeted and performed a rapid initial assessment of this patient. A comprehensive ED assessment and evaluation of the patient, analysis of test results and completion of the medical decision making process will be conducted by additional ED providers. - Vital Signs Vital signs: Temp Pulse Resp BP Pulse Ox 98.6 F 95 16 118/57 L 100 06/20/19 18:14 06/20/19 18:14 06/20/19 18:14 06/20/19 18:14 06/20/19 18:14 Doctor's Discharge - Discharge Referrals: HAVEN ELISE MD [Primary Care Provider] - Follow up as needed
--- NOTE | 2019-06-20 19:38 | RADIOLOGY REPORT (SQ) ---
EXAM DESCRIPTION: U/S SCROTUM W/DOPPLER COMPLETED DATE/TIME: 06/20/2019 7:17 pm REASON FOR STUDY: LUMP TO RIGHT UPPER SCROTUM COMPARISON: None. TECHNIQUE: Static and realtime casillas scale imaging of the scrotum and testes. Selected color Doppler and spectral images recorded to document blood flow. LIMITATIONS: None. FINDINGS: RIGHT: TESTICLE: Normal size. Normal echotexture. Normal blood flow. No mass. EPIDIDYMIS: Normal. HYDROCELE OR VARICOCELE: No. HERNIA OR EXTRA-TESTICULAR MASS: No. OTHER: 1.4 x 1 x 0.6 cm complex fluid collection within the superior scrotal subcutaneous soft tissue s demonstrating peripheral hypervascularity. LEFT: TESTICLE: Normal size. Normal echotexture. Normal blood flow. No mass. EPIDIDYMIS: Normal. HYDROCELE OR VARICOCELE: Varicocele. HERNIA OR EXTRA-TESTICULAR MASS: No. OTHER: No other significant finding. IMPRESSION: 1.4 cm abscess within the right superior scrotal subcutaneous soft tissue. No acute devonte ticular findings. Left varicocele. TECHNICAL DOCUMENTATION: JOB ID: [id number] [email or web address] All Rights Reserved Reading location - IP/workstation name: [email or web address]
[2019-06-20] MEDS ORDERED: PENICILLIN V POTASSIUM 500 MG TABLET PO ONE (19:40)
[2019-06-20] MEDS ORDERED: CLINDAMYCIN HCL 150 MG CAPSULE PO ONE (19:42)
--- NOTE | 2019-06-20 19:50 | ER Document Report ---
HPI - HPI Time Seen by Provider: 06/20/19 18:23 Context: Patient is a 29-year-old male who presents to the emergency department with a chief complaint of dental pain and right scrotal pain. Patient reports he has had a broken tooth with exposed nerve for years. Patient reports over the past few days the pain is gotten worse. Patient denies facial swelling, fever, difficulty breathing or swallowing. Patient also complains of right upper scrotal pain. Patient reports he noticed a lump to the right upper scrotum about 3 days ago. He reports is extremely tender. Patient reports he did have a scrotal abscess in the past before and never returned for the packing. Patient states he went to take the packing out in a part of it was still left in place. Patient states he thinks there could be packing that his left inside. Patient denies drainage. Patient denies a history of diabetes. Past Medical History - General Information source: Patient - Social History Smoking Status: Never Smoker Frequency of alcohol use: None Drug Abuse: None Lives with: Family Family History: Reviewed & Not Pertinent - Past Medical History Cardiac Medical History: Reports: None Denies: Hx Coronary Artery Disease, Hx Heart Attack, Hx Hypertension Pulmonary Medical History: Reports: None Denies: Hx Asthma, Hx Bronchitis, Hx COPD, Hx Pneumonia EENT Medical History: Reports: None Neurological Medical History: Reports: None. Denies: Hx Cerebrovascular Accident, Hx Seizures Endocrine Medical History: Reports: None Renal/ Medical History: Reports: None. Denies: Hx Peritoneal Dialysis Malignancy Medical History: Reports None GI Medical History: Reports: None Musculoskeletal Medical History: Reports None, Denies Hx Arthritis Skin Medical History: Reports None Psychiatric Medical History: Reports: Hx Depression Traumatic Medical History: Reports: None Infectious Medical History: Reports: None Surgical Hx: Negative - Immunizations Immunizations up to date: Yes Hx Diphtheria, Pertussis, Tetanus Vaccination: No Vertical Provider Document - CONSTITUTIONAL Agree With Documented VS: Yes Exam Limitations: No Limitations General Appearance: No Apparent Distress - INFECTION CONTROL TRAVEL OUTSIDE OF THE [place] IN LAST 30 DAYS: No - HEENT HEENT: Atraumatic, Normocephalic, PERRLA Mouth Diagram: 1 - Broken tooth down to gumline, no obvious exposed nerve. Minimal erythema, no palpable abscess. - NECK Neck: Normal Inspection - RESPIRATORY Respiratory: Breath Sounds Normal - CARDIOVASCULAR Cardiovascular: Regular Rate, Regular Rhythm - GI/ABDOMEN Gastrointestinal: Abdomen Soft, Abdomen Non-Tender - REPRODUCTIVE Notes: 2 cm firm area to the right upper scrotum, no drainage, mild erythema. - MUSCULOSKELETAL/EXTREMETIES Musculoskeletal/Extremeties: FROM - NEURO Level of Consciousness: Awake, Alert, Appropriate - DERM Integumentary: Warm Course - Re-evaluation Re-evalutation: 06/20/19 19:49 Dr. Palomares to come to bedside for evaluation of the scrotal abscess. 06/20/19 19:53 Dr. Palomares at bedside. Will I&D abscess. 06/20/19 20:00 Patient has been medicated for pain and covered with clindamycin for the possible dental infection and abscess. - Vital Signs Vital signs: Temp Pulse Resp BP Pulse Ox 98.6 F 95 16 118/57 L 100 06/20/19 18:14 06/20/19 18:14 06/20/19 18:14 06/20/19 18:14 06/20/19 18:14 - Diagnostic Test Radiology reviewed: Reports reviewed Radiology results interpreted by me: 06/20/19 19:49 Scrotum Ultrasound 06/20/19 18:37 IMPRESSION: 1.4 cm abscess within the right superior scrotal subcutaneous soft tissue. No acute testicular findings. Left varicocele. Discharge - Discharge Clinical Impression: Scrotal abscess, Dental infection, Hidradenitis Condition: Stable Disposition: HOME, SELF-CARE Instructions: Clindamycin (OM), Toothache (OM) Additional Instructions: *Today was seen in the emergency department for dental pain and a scrotal abscess. We are treating you with oral antibiotics called clindamycin. You will take these as prescribed for 1 week. This will cover the dental infection as well as the scrotal abscess. *The wound was packed with iodoform gauze to keep it open and draining it. I will continue to drain over the next few days. Do not pull this out. Please return in 48 hours to have this abscess rechecked. ABSCESS: You have an abscess (boil). This a pus-forming infection, usually due to staph. Some boils may be left to drain on their own, but most require lancing. From the time the tender lump first appears, it may be three or four days before the abscess is ready to natasha. Local heat and rest help at this stage of treatment. An antibiotic may prevent spread of the infection. Once the abscess is opened, packing may be placed into it. This is done so pus is not sealed inside by premature closure of the cavity. The packing will be removed at your follow-up visit or you may be advised to remove it yourself at home. Sometimes this packing must be replaced a few times during healing. The wound will heal with surprisingly little scar. Depending on the size and location of an abscess, healing can take one to four weeks. You may shower and wash the area around the incision site two or three times a day. Antibiotics may be prescribed, but are usually not necessary after an abscess has been drained. If you develop fever, chills, worsening pain, or increasing swelling in the area, call the doctor or return immediately. POST INCISION AND DRAINAGE: You have had an incision made to allow drainage of an abscess. The incision must remain open so that pus and debris can drain from the wound. If the abscess cavity is large, packing is placed. This keeps the tissues from collapsing and trapping pus inside, while the body shrinks the cavity. The packing may need to be replaced every day or two. The physician will instruct you on the packing. Keep a bulky dressing over the area. Replace it if it becomes saturated with blood or pus. Do not disturb the packing (if present). You may shower and cleanse the area with gentle soap and warm water two or three times a day. Local warmth may be soothing, and may promote faster healing. Return if you develop high fever or chills, or if you note spreading redness, increasing swelling, or increasing tenderness. FOLLOW-UP CARE: Most simple abscesses will not require a follow up visit. If you had packing placed in the abscess, remove it as instructed by the physician. If you have been referred to a physician for follow-up care, call the physicians office for an appointment as you were instructed or within the next two days. If you experience worsening or a significant change in your symptoms, return to the Emergency Department at any time for re-evaluation. Prescriptions: Clindamycin HCl [Cleocin HCl] 450 mg PO TID 7 Days #63 capsule Forms: Return to Work Referrals: KIMBERLY ARIAS MD [ACTIVE STAFF] - Follow up as needed
[2019-06-20] MEDS ORDERED: LIDOCAINE 1% INJ-PF (10 MG/ML) 30 ML SDV INJ ONE (19:53)
--- NOTE | 2019-06-20 21:08 | Operative Report ---
Operative Report DATE OF SURGERY: 06/20/19 PREOPERATIVE DIAGNOSIS: Abscess right scrotal area POSTOPERATIVE DIAGNOSIS: Same OPERATION: Incision and drainage abscess right scrotal area SURGEON: FLORENTIN MONTANO ANESTHESIA: Local TISSUE REMOVED OR ALTERED: Pus sent for culture COMPLICATIONS: None ESTIMATED BLOOD LOSS: 1 cc QUANTITATIVE BLOOD LOSS: 1 INTRAOPERATIVE FINDINGS: Small abscess just under the skin PROCEDURE: Patient was placed in supine position while on the stretcher and the right scrotal area was then prepped and draped in the usual sterile fashion. Local anesthesia infiltrated around the abscess site. Next a cruciate incision made over the midpart of the abscess and pus extruded out and this was then placed in a culturette which will be sent for culture and sensitivity studies. The cavity was subsequently probed with a forceps and then squeezed around and only a small amount of pus extruded out. The I&D site was less than 1 cm in diameter. 1/4 inch iodoform gauze was used as packing. It was then dressed with 4 x 4's. Patient to be given p.o. clindamycin by the ER Provider and to come back to ED in about 2 days for removal of the packing. Patient tolerated procedure well
[2019-06-20 21:13] VITALS: BP 120/73
== END 2019-06-20 21:13 | disposition home or self-care (01) ==
LOC: ER 18:09
DX: N49.2 Inflammatory disorders of scrotum (principal); K04.7 Periapical abscess without sinus; L73.2 Hidradenitis suppurativa; K08.9 Disorder of teeth and supporting structures, unspecified; N50.82 Scrotal pain
CPT/HCPCS: 87070; 87205; 87075; 87077; 76870; 93976; 55100; A6266; J3490 ×3; 99284

== ENCOUNTER 2019-06-22 08:19 | Emergency (ER) | payer MEDICAID ==
[2019-06-22 08:37] VITALS: BP 121/69
--- NOTE | 2019-06-22 09:04 | ER Document Report ---
ED Wound - General Chief Complaint: Wound Recheck Stated Complaint: WOUND RECHECK Time Seen by Provider: 06/22/19 08:41 Primary Care Provider: FRANK NORTON MD [Primary Care Provider] - Follow up as needed Information source: Patient TRAVEL OUTSIDE OF THE [place] IN LAST 30 DAYS: No - HPI Notes: Patient presents for wound recheck. Patient was seen here June 20, 2019 for a scrotal abscess. The wound was incised and drained by surgery. He states that the packing fell out and he is concerned that some packing may still be left in. He states it is mangle tender cloth. Tenderness is mild to moderate. No significant radiation. It is worse when touched and better if left alone. He denies any other symptoms at this time. - Related Data Allergies/Adverse Reactions: No Known Allergies Allergy (Verified 06/22/19 08:28) Home Medications: CVS/GB Past Medical History - General Information source: Patient - Social History Smoking Status: Never Smoker Chew tobacco use (# tins/day): No Frequency of alcohol use: None Drug Abuse: None Family History: Reviewed & Not Pertinent Patient has suicidal ideation: No Patient has homicidal ideation: No - Past Medical History Cardiac Medical History: Denies: Hx Coronary Artery Disease, Hx Heart Attack, Hx Hypertension Pulmonary Medical History: Denies: Hx Asthma, Hx Bronchitis, Hx COPD, Hx Pneumonia Neurological Medical History: Denies: Hx Cerebrovascular Accident, Hx Seizures Renal/ Medical History: Denies: Hx Peritoneal Dialysis Musculoskeletal Medical History: Denies Hx Arthritis Psychiatric Medical History: Reports: Hx Depression - Immunizations Immunizations up to date: Yes Hx Diphtheria, Pertussis, Tetanus Vaccination: No Review of Systems - Review of Systems Constitutional: denies: Chills, Fever Genitourinary: denies: Dysuria, Discharge Physical Exam - Vital signs Vitals: Temp Pulse Resp BP Pulse Ox 98.0 F 72 16 121/69 100 06/22/19 08:31 06/22/19 08:31 06/22/19 08:31 06/22/19 08:31 06/22/19 08:31 Interpretation: Normal - General General appearance: Appears well, Alert In distress: None - Abdominal Inspection: Normal Distension: No distension Bowel sounds: Normal Tenderness: Nontender Organomegaly: No organomegaly - Genitourinary Notes: Genitalia exam is unremarkable except patient has a healing abscess in the right inguinal area. I do not appreciate any foreign body. It appears to be consistent with a healing abscess. He has some mild yellow drainage from this area. - Psychological Associated symptoms: Normal affect, Normal mood - Skin Skin Temperature: Warm Skin Moisture: Dry Skin Color: Normal, Other - Except as noted above Course - Vital Signs Vital signs: Temp Pulse Resp BP Pulse Ox 98.0 F 72 16 121/69 100 06/22/19 08:31 06/22/19 08:31 06/22/19 08:31 06/22/19 08:31 06/22/19 08:31 Discharge - Discharge Clinical Impression: Encounter for wound re-check Condition: Stable Disposition: HOME, SELF-CARE Additional Instructions: Follow-up with your primary care physician in 2 to 3 days for a wound recheck. Referrals: FRANK NORTON MD [Primary Care Provider] - Follow up as needed
== END 2019-06-22 09:16 | disposition home or self-care (01) ==
LOC: ER 08:19
DX: N49.2 Inflammatory disorders of scrotum (principal)
CPT/HCPCS: 99282

== ENCOUNTER → 2019-06-29 | Outpatient (CLI) | payer MEDICAID ==
[~2019-06-29] MED LIST changes: +MORPHINE SULFATE 10 MG/ML INJ ONE; -PROPOFOL INJ 200 MG/20 ML VIAL IV ONE
--- NOTE | 2019-06-29 14:12 | RADIOLOGY REPORT (SQ) ---
EXAM DESCRIPTION: NM HIDA SCAN COMPLETED DATE/TIME: 06/29/2019 1:03 pm REASON FOR STUDY: RIGHT UPPER QUADRANT PAIN R10.11 RIGHT UPPER QUADRANT PAIN COMPARISON: None. RADIONUCLIDE AND DOSE: Integrated into the Findings. TECHNIQUE: Integrated into Findings. LIMITATIONS: None. FINDINGS: 5.28 mCi of Tc99m Mebrofenin was administered intravenously and serial images of the abdom en in the anterior projection were obtained at a 0, 30, 45 and 60 minutes post injection. Within 60 minutes of injection there was prompt up taken excretion of the radiotracer by the hepatic parenchyma with activity visualized within the small bowel at 30 minutes. Since no activity was visualized wit hin the gallbladder delayed images at 110 and 120 minutes were obtained in the anterior and lateral p rojections. Again no activity was visualized within the gallbladder. 1.09 mCi of Tc99m Mebrofenin and 2.4 mg of morphine were then administered intravenously serial image s of the abdomen in the anterior projection were obtained at 2 minutes intervals for a total of 30 mi nutes at 30 minutes post injection of morphine activity was visualized within the gallbladder. IMPRESSION: No scintigraphic evidence of acute cholecystitis. In order to visualize the gallbladder the imaging had to be extended for a total of 205 minutes and IV morphine had to be administered. TECHNICAL DOCUMENTATION: JOB ID: [id number] [employer]- All Rights Reserved Reading location - IP/workstation name: [email or web address]
== END ==
LOC: RAD 08:09
PROVIDERS: ATTEND Internal Medicine Gastroenterology
DX: R10.11 Right upper quadrant pain (principal)
CPT/HCPCS: 78226; A9537; J2270; Q9969

== ENCOUNTER 2019-07-06 07:44 | Emergency (ER) | payer MEDICAID ==
[2019-07-06 07:54] VITALS: BP 126/99
[2019-07-06] MEDS ORDERED: HYDROCODONE/ACETAMINOPHEN 5-325 MG TABLET PO ONE (08:50)
[2019-07-06] MEDS ORDERED: PENICILLIN V POTASSIUM 250 MG TABLET PO ONE (08:51)
--- NOTE | 2019-07-06 08:56 | ER Document Report ---
ED Oral Problem - General Chief Complaint: Toothache Stated Complaint: TOOTH PAIN Primary Care Provider: FRANK NORTON MD [Primary Care Provider] - Follow up as needed TRAVEL OUTSIDE OF THE [place] IN LAST 30 DAYS: No - HPI Patient complains to provider of: Toothache - Patient is scheduled to see a oral surgeon for impacted wisdom teeth. Onset: Last week Onset: Gradual Quality of pain: Throbbing Severity: Moderate Pain Level: 1 Associated symptoms: Toothache. denies: None, Chills, Cough, Decreased appetite, Dental decay, Difficulty speaking, Drainage, Drooling, Earache, Facial pain, Fever, Headache, Jaw pain, Short of breath, Sweaty, Tongue swelling, Unable to swallow, White patches in mouth, Other Worsened by: Nothing Relieved by: Nothing - Related Data Allergies/Adverse Reactions: No Known Allergies Allergy (Verified 07/06/19 08:07) Past Medical History - Social History Smoking Status: Never Smoker Chew tobacco use (# tins/day): No Frequency of alcohol use: None Drug Abuse: None Family History: Reviewed & Not Pertinent Patient has suicidal ideation: No Patient has homicidal ideation: No - Past Medical History Cardiac Medical History: Denies: Hx Coronary Artery Disease, Hx Heart Attack, Hx Hypertension Pulmonary Medical History: Denies: Hx Asthma, Hx Bronchitis, Hx COPD, Hx Pneumonia Neurological Medical History: Denies: Hx Cerebrovascular Accident, Hx Seizures Renal/ Medical History: Denies: Hx Peritoneal Dialysis Musculoskeletal Medical History: Denies Hx Arthritis Psychiatric Medical History: Reports: Hx Depression - Immunizations Immunizations up to date: Yes Hx Diphtheria, Pertussis, Tetanus Vaccination: No Review of Systems - Review of Systems Constitutional: denies: No symptoms reported, See HPI, Chills, Diaphoresis, Fever, Malaise, Weakness, Other, Weight gain, Weight loss, Recent illness EENT: Dental problem. denies: No symptoms reported, See HPI, Eye pain, Eye discharge, Blurred vision, Tearing, Double vision, Ear pain, Ear discharge, Nose pain, Nose congestion, Nose discharge, Sinus pressure, Sinus discharge, Throat pain, Difficulty swallowing, Throat swelling, Mouth pain, Mouth swelling, Vertigo, Other -: Yes All other systems reviewed and negative Physical Exam - Vital signs Vitals: Temp Pulse Resp BP Pulse Ox 98.1 F 65 20 126/99 H 100 07/06/19 07:54 07/06/19 07:54 07/06/19 07:54 07/06/19 07:54 07/06/19 07:54 Notes: PHYSICAL EXAMINATION: GENERAL: Well-appearing, well-nourished and in no acute distress. HEAD: Atraumatic, normocephalic. EYES: Pupils equal round and reactive to light, extraocular movements intact, sclera anicteric, conjunctiva are normal. ENT: nares patent, oropharynx clear without exudates. Moist mucous membranes. Inflammation to the posterior wisdom teeth area upper and lower. NECK: Normal range of motion, supple without lymphadenopathy LUNGS: Breath sounds clear to auscultation bilaterally and equal. No wheezes rales or rhonchi. HEART: Regular rate and rhythm without murmurs ABDOMEN: Soft, nontender, normoactive bowel sounds. No guarding, no rebound. No masses appreciated. EXTREMITIES: Normal range of motion, no pitting or edema. No cyanosis. NEUROLOGICAL: No focal neurological deficits. Moves all extremities spontaneously and on command. PSYCH: Normal mood, normal affect. SKIN: Warm, Dry, normal turgor, no rashes or lesions noted. Course - Vital Signs Vital signs: Temp Pulse Resp BP Pulse Ox 98.1 F 65 20 126/99 H 100 07/06/19 07:54 07/06/19 07:54 07/06/19 07:54 07/06/19 07:54 07/06/19 07:54 Discharge - Discharge Clinical Impression: impacted wisdom teeth with gingivitis Condition: Stable Disposition: HOME, SELF-CARE Instructions: Toothache ([facility]), Penicillin V K ([facility]) Additional Instructions: Follow-up with your oral for wisdom teeth extraction. Return if worse Prescriptions: Diclofenac Sodium 75 mg PO Q12 PRN #30 tablet.dr LYNCH Reason: Pain Scale Of 3 Penicillin V Potassium [Penicillin Vk 500 mg Tablet] 500 mg PO BID #20 tablet Referrals: FRANK NORTON MD [Primary Care Provider] - Follow up as needed
== END 2019-07-06 09:17 | disposition home or self-care (01) ==
LOC: ER 07:44
DX: K01.1 Impacted teeth (principal); K05.10 Chronic gingivitis, plaque induced; K08.89 Other specified disorders of teeth and supporting structures
CPT/HCPCS: 99282

== ENCOUNTER 2019-09-22 17:04 | Emergency (ER) | payer MEDICAID ==
[2019-09-22] MEDS ORDERED: ONDANSETRON 4 MG TAB.RAPDIS PO ONE ×2 (17:26→17:37)
[2019-09-22] MEDS ORDERED: NORMAL SALINE 1000 ML 1,000 ML IV ONE ×2 (17:26→23:20)
--- NOTE | 2019-09-22 17:32 | ER Document Report ---
ED Medical Screen (RME) - General Chief Complaint: Abdominal Pain Stated Complaint: WEAKNESS Time Seen by Provider: 09/22/19 17:23 Primary Care Provider: FRANK NORTON MD [Primary Care Provider] - Follow up as needed Notes: HPI: 29-year-old male presenting for nausea vomiting that began today with epigastric abdominal pain. No definitive fever. Difficult to obtain history as patient is throwing himself around in the wheelchair. Has had several episodes of vomiting. States he has had friends who have been sick with similar recently I have greeted and performed a rapid initial assessment of this patient. A comprehensive ED assessment and evaluation of the patient, analysis of test results and completion of the medical decision making process will be conducted by additional ED providers PHYSICAL EXAMINATION: GENERAL: Well-appearing, well-nourished and in mild acute distress. Patient is very dramatic HEAD: Atraumatic, normocephalic. EYES: sclera anicteric, conjunctiva are normal. ENT: Moist mucous membranes. NECK: Normal range of motion LUNGS: Normal work of breathing HEART: 2+ radial pulses bilaterally ABD: limited by positioning for exam in triage. Mild epigastric pain on palpation but difficult exam secondary to patient cooperation EXTREMITIES: no pitting or edema. No cyanosis. NEUROLOGICAL: No focal neurological deficits. Moves all extremities spontaneously and on command. PSYCH: Patient somewhat dramatic in presentation SKIN: Warm, Dry, normal turgor, no rashes or lesions noted. TRAVEL OUTSIDE OF THE [place] IN LAST 30 DAYS: No - Related Data Allergies/Adverse Reactions: No Known Allergies Allergy (Verified 09/22/19 17:17) Past Medical History - Social History Chew tobacco use (# tins/day): No Frequency of alcohol use: None Drug Abuse: None - Past Medical History Cardiac Medical History: Denies: Hx Coronary Artery Disease, Hx Heart Attack, Hx Hypertension Pulmonary Medical History: Denies: Hx Asthma, Hx Bronchitis, Hx COPD, Hx Pneumonia Neurological Medical History: Denies: Hx Cerebrovascular Accident, Hx Seizures Renal/ Medical History: Denies: Hx Peritoneal Dialysis Musculoskeltal Medical History: Denies Hx Arthritis Psychiatric Medical History: Reports: Hx Depression - Immunizations Immunizations up to date: Yes Hx Diphtheria, Pertussis, Tetanus Vaccination: No Doctor's Discharge - Discharge Referrals: FRANK NORTON MD [Primary Care Provider] - Follow up as needed
[2019-09-22 18:47] LABS: ABSOLUTE LYMPHOCYTES (AUTO) 1.2 10^3/uL (0.5-4.7); ABSOLUTE MONOCYTES (AUTO) 0.9 10^3/uL (0.1-1.4); ABSOLUTE NEUT (AUTO) 9.6 10^3/uL (1.7-8.2); BASOPHILS % (AUTO) 0.4 % (0-2); HEMATOCRIT 48.5 % (37.9-51.0); HEMOGLOBIN 15.9 g/dL (13.5-17.0); MEAN CORPUSCULAR HEMOGLOBIN 27.3 pg (27.0-33.4); MEAN CORPUSCULAR HGB CONC 32.8 g/dL (32.0-36.0); MEAN CORPUSCULAR VOLUME 83 fl (80-97); MONOCYTES % (AUTO) 7.5 % (3-13); PLATELET COUNT 257 10^3/uL (150-450); RED BLOOD COUNT 5.81 10^6/uL (4.35-5.55); RED CELL DISTRIBUTION WIDTH 14.9 % (11.5-14.0); SEGMENTED NEUTROPHILS % (AUTO) 82.1 % (42-78); TOTAL CELLS COUNTED % (AUTO) 100 %; WHITE BLOOD COUNT 11.7 10^3/uL (4.0-10.5)
[2019-09-22 19:12] LABS: ALKALINE PHOSPHATASE 153 U/L (38-126); ANION GAP 11 (5-19); ASPARTATE AMINO TRANSFERASE 25 U/L (17-59); BILIRUBIN,TOTAL 0.5 mg/dL (0.2-1.3); BLOOD UREA NITROGEN 11 mg/dL (7-20); CALCIUM 10.3 mg/dL (8.4-10.2); CARBON DIOXIDE 28 mmol/L (22-30); CHLORIDE 101 mmol/L (98-107); GLUCOSE 121 mg/dL (75-110); POTASSIUM 4.5 mmol/L (3.6-5.0); TOTAL PROTEIN 7.7 g/dL (6.3-8.2)
[2019-09-22 21:23] LABS: APPEARANCE,URINE SLIGHTLY-CLOUDY; BILIRUBIN,URINE NEGATIVE (NEGATIVE); COLOR,URINE YELLOW; GLUCOSE, URINE NEGATIVE (NEGATIVE); KETONES,URINE 80 mg/dL (NEGATIVE); LEUKOCYTE ESTERASE,URINE NEGATIVE (NEGATIVE); NITRITE,URINE NEGATIVE (NEGATIVE); PROTEIN,URINE 100 mg/dL (NEGATIVE); URINE SPECIFIC GRAVITY 1.026
[2019-09-22] MEDS ORDERED: PROCHLORPERAZINE EDISYLATE INJ 10 MG/2 ML VIAL IV ONE (22:42)
[2019-09-22] MEDS ORDERED: DIPHENHYDRAMINE HCL 50 MG/ML VIAL IV ONE (22:42)
--- NOTE | 2019-09-22 23:23 | ER Document Report ---
ED GI/ - General Chief Complaint: Abdominal Pain Stated Complaint: WEAKNESS Time Seen by Provider: 09/22/19 17:23 Primary Care Provider: FRANK NROTON MD [Primary Care Provider] - Follow up as needed Notes: Patient is a 29-year-old male that comes emergency department for chief complaint of repeated vomiting today. He reports generalized pain in the upper abdomen mainly on the left upper quadrant. He denies diarrhea or fever. He reports multiple sick family members who have been vomiting as well. He denies any abdominal surgeries, daily medications, recreational drugs, or alcohol. He denies any other complaints or any other locations of pain. TRAVEL OUTSIDE OF THE [place] IN LAST 30 DAYS: No - Related Data Allergies/Adverse Reactions: No Known Allergies Allergy (Verified 09/22/19 17:17) Past Medical History - General Information source: Patient - Social History Smoking Status: Never Smoker Chew tobacco use (# tins/day): No Frequency of alcohol use: None Drug Abuse: None Lives with: Family Family History: Reviewed & Not Pertinent Patient has suicidal ideation: No Patient has homicidal ideation: No - Past Medical History Cardiac Medical History: Denies: Hx Coronary Artery Disease, Hx Heart Attack, Hx Hypertension Pulmonary Medical History: Denies: Hx Asthma, Hx Bronchitis, Hx COPD, Hx Pneumonia Neurological Medical History: Denies: Hx Cerebrovascular Accident, Hx Seizures Renal/ Medical History: Denies: Hx Peritoneal Dialysis Musculoskeletal Medical History: Denies Hx Arthritis Psychiatric Medical History: Reports: Hx Depression - Immunizations Immunizations up to date: Yes Hx Diphtheria, Pertussis, Tetanus Vaccination: Yes Review of Systems - Review of Systems Constitutional: No symptoms reported EENT: No symptoms reported Cardiovascular: No symptoms reported Respiratory: No symptoms reported Gastrointestinal: See HPI Genitourinary: No symptoms reported Male Genitourinary: No symptoms reported Musculoskeletal: No symptoms reported Skin: No symptoms reported Hematologic/Lymphatic: No symptoms reported Neurological/Psychological: No symptoms reported Physical Exam - Vital signs Vitals: Pulse Pulse Ox 27 L 89 L 09/22/19 22:41 09/22/19 22:41 - Notes Notes: GENERAL: Alert, responsive, cooperative. Slightly restless, appears uncomfortable but not in distress HEAD: Normocephalic, atraumatic. EYES: Pupils equal, round, and reactive to light. Extraocular movements intact. ENT: Oral mucosa dry, tongue midline. Oropharynx unremarkable. Airway patent. Na res patent, no nasal septal hematoma, TM's intact. NECK: Full range of motion. Supple. Trachea midline. LUNGS: Clear to auscultation bilaterally, no wheezes, rales, or rhonchi. No respiratory distress. HEART: Regular rate and rhythm. No murmur ABDOMEN: Minimal generalized tenderness, nonspecific, no guarding. Bowel sounds present. EXTREMITIES: Moves all 4 extremities spontaneously. No edema, normal radial and dorsalis pedis pulses bilaterally. No cyanosis. BACK: no cervical, thoracic, lumbar midline tenderness. No saddle anesthesia, normal distal neurovascular exam. Moves all extremities in full range of motion. NEUROLOGICAL: Alert and oriented x3. Normal speech. Cranial nerves II through X II grossly intact. PSYCH: Restless SKIN: Warm, dry, normal turgor. No rashes or lesions noted. Course - Re-evaluation Re-evalutation: Patient reportedly was vomiting after Zofran in triage, he has just been medicated again with Compazine and Benadryl. He is getting IV fluids. On evaluation patient vomited when we tried to give him p.o. Phenergan and Pepcid. Unfortunately patient did also go down an entire soda at the same time so I feel this is nonspecific. I reevaluated patient, he actually appears much improved, his skin color is better, he appears much more relaxed. His abdomen is still benign with only generalized tenderness. His vital signs are unremarkable. CBC shows mild leukocytosis, chemistry nonspecific, urine shows 80 ketones. Patient was given small amount of pain medicine and IM Phenergan. After this patient was much improved. He became very relaxed, tolerated p.o. without any difficulty, states he feels much better and is ready to go home. Based on patient's overall presentation, work-up, and his mother having the same symptoms I strongly suspect this is viral and have a low suspicion of concerning infection or acute abdomen. Patient was discharged with return precautions and follow-up instructions. He states understanding and agreement. - Vital Signs Vital signs: Temp Pulse Resp BP Pulse Ox 98.7 F 71 20 110/52 L 97 09/23/19 05:03 09/23/19 05:03 09/23/19 05:03 09/23/19 05:03 09/23/19 05:03 - Laboratory Result Diagrams: 09/22/19 18:20 09/22/19 18:20 Laboratory results interpreted by me: 09/22/19 09/22/19 09/22/19 18:20 18:20 21:02 WBC 11.7 H RBC 5.81 H RDW 14.9 H Lymph % (Auto) 10.0 L Absolute Neuts (auto) 9.6 H Seg Neutrophils % 82.1 H Glucose 121 H Calcium 10.3 H Alkaline Phosphatase 153 H Urine Protein 100 H Urine Ketones 80 H Urine Urobilinogen 2.0 H Discharge - Discharge Clinical Impression: Vomiting and diarrhea, Dehydration Condition: Stable Disposition: HOME, SELF-CARE Additional Instructions: Your work-up is reassuring, your evaluation is most consistent with dehydration from a viral illness causing your vomiting, diarrhea, and general symptoms. Start with clear fluids and then bland diet (toast, rice, bread, soup, etc.). Avoid dairy, spicy food, alcohol, caffeine initially. Take Carafate and Phenergan as prescribed. You can take Tylenol for pain but avoid NSAIDs. Return to the emergency department for any concerning or worsening symptoms including severe pain, fever, uncontrolled vomiting, or any other concerning symptoms. Prescriptions: Sucralfate [Carafate 1 gm Tablet] 1 gm PO QID #20 tablet Promethazine HCl [Phenergan 25 mg Tablet] 25 mg PO Q6H PRN #20 tablet PRN Reason: Forms: Return to Work Referrals: FRANK NORTON MD [Primary Care Provider] - Follow up as needed
[2019-09-23] MEDS ORDERED: PROMETHAZINE HCL 25 MG TABLET PO ONE (00:49)
[2019-09-23] MEDS ORDERED: FAMOTIDINE 20 MG TABLET PO ONE (00:49)
[2019-09-23] MEDS ORDERED: MORPHINE SULFATE 10 MG/ML INJ IV ONE (03:43)
[2019-09-23] MEDS ORDERED: RINGERS SOLUTION,LACTATED 1,000 ML IV ONE (03:43)
[2019-09-23] MEDS ORDERED: PROMETHAZINE HCL INJ 25 MG/1 ML VIAL IM ONE (03:43)
[2019-09-23 06:00] VITALS: BP 110/52
== END 2019-09-23 06:05 | disposition home or self-care (01) ==
LOC: ER 17:04
DX: R11.10 Vomiting, unspecified (principal); R19.7 Diarrhea, unspecified; E86.0 Dehydration; R53.1 Weakness; R10.12 Left upper quadrant pain; R10.9 Unspecified abdominal pain
CPT/HCPCS: 99284; 96372; 96361; 96374; 96375; 36415; 83690; 85025; 80053; 81001; J3490 ×2; J1200; S0119; J2270; J0780; J2550; J7030 ×2; J7120

== ENCOUNTER 2020-05-10 17:11 | Emergency (ER) | payer MEDICAID ==
[2020-05-10] MEDS ORDERED: OXYCODONE-ACETAMINOPHEN 5-325 MG TABLET PO ONE (18:28)
[2020-05-10] MEDS ORDERED: KETOROLAC TROMETHAMINE 60 MG/2 ML SDV IM ONE (18:28)
[2020-05-10] MEDS ORDERED: LIDOCAINE 2% VISCOUS SOLN 15 ML UDCUP PO ONE (18:29)
[2020-05-10 18:31] VITALS: BP 140/90
--- NOTE | 2020-05-10 18:33 | ER Document Report ---
HPI - HPI Patient complains to provider of: Toothache Time Seen by Provider: 05/10/20 18:22 Notes: 29-year-old female to the emergency department with complaints of 2-day of left lower jaw pain. He states that the area hurts his mouth and it radiates to the ear and face. He took ibuprofen with no. He states that he broke a tooth a while ago but has not been able to see a dentist. He denies any difficulty swallowing, shortness of breath, chest pain, drooling, voice change, fevers, chills. He does smoke. - ROS Systems Reviewed and Negative: Yes All other systems reviewed and negative - CONSTITUTIONAL Constitutional: DENIES: Fever, Chills - EENT EENT: REPORTS: Ear Pain. DENIES: Sore Throat, Congestion Notes: Dental pain - NEURO Neurology: REPORTS: Headache. DENIES: Weakness - CARDIOVASCULAR Cardiovascular: DENIES: Chest pain - RESPIRATORY Respiratory: DENIES: Trouble Breathing, Coughing - GASTROINTESTINAL Gastrointestinal: DENIES: Abdominal Pain, Nausea, Patient vomiting, Diarrhea - REPRODUCTIVE Reproductive: DENIES: : - DERM Skin Color: Normal Skin Problems: None Past Medical History - General Information source: Patient - Social History Smoking Status: Current Every Day Smoker Frequency of alcohol use: None Drug Abuse: None Family History: Reviewed & Not Pertinent - Past Medical History Cardiac Medical History: Denies: Hx Coronary Artery Disease, Hx Heart Attack, Hx Hypertension Pulmonary Medical History: Denies: Hx Asthma, Hx Bronchitis, Hx COPD, Hx Pneumonia Neurological Medical History: Denies: Hx Cerebrovascular Accident, Hx Seizures Renal/ Medical History: Denies: Hx Peritoneal Dialysis Musculoskeletal Medical History: Denies Hx Arthritis Psychiatric Medical History: Reports: Hx Depression - Immunizations Immunizations up to date: Yes Hx Diphtheria, Pertussis, Tetanus Vaccination: Yes Vertical Provider Document - CONSTITUTIONAL Agree With Documented VS: Yes General Appearance: WD/WN, Moderate Distress Notes: Moderate pain distress. Patient is guarding the left side of his jaw - INFECTION CONTROL TRAVEL OUTSIDE OF THE [place] IN LAST 30 DAYS: No - HEENT HEENT: Atraumatic, Normocephalic, PERRLA Notes: Multiple dental caries throughout the mouth however, tooth #19 tooth is eroded and decayed down to the gumline. Is tender to palpation. There is no hoda dental abscess associated with this. There is no facial swelling. There is no Zia angina. Airway is grossly patent. - NECK Neck: Normal Inspection, Supple. negative: Lymphadenopathy-Left, Lymphadenopathy-Right - RESPIRATORY Respiratory: Breath Sounds Normal, No Respiratory Distress. negative: Rales, Rhonchi, Wheezing - CARDIOVASCULAR Cardiovascular: Regular Rate, Regular Rhythm, No Murmur - GI/ABDOMEN Gastrointestinal: Abdomen Soft, Abdomen Non-Tender - NEURO Level of Consciousness: Awake, Alert Motor/Sensory: No Motor Deficit, No Sensory Deficit - DERM Integumentary: Warm, No Rash Course - Re-evaluation Re-evalutation: Impression: Dental caries, tooth ache. Will start patient on pain control as well as antibiotics. Encouraged him to go see his dentist without fail. Given him strict return precautions. Patient agrees with plan. - Vital Signs Vital signs: Temp Pulse Resp BP Pulse Ox 98.7 F 79 18 159/129 H 94 05/10/20 17:19 05/10/20 17:19 05/10/20 17:19 05/10/20 17:19 05/10/20 17:19 Discharge - Discharge Clinical Impression: Toothache, Dental caries Condition: Stable Disposition: HOME, SELF-CARE Instructions: [facility], Penicillin V K ([facility]), Toothache ([facility]) Additional Instructions: COMPLETE ANTIBIOTICS. TAKE PAIN MEDS PRESCRIBED. PLEASE FOLLOW UP WITH DENTIST WITHOUT FAIL. RETURN IF WORSENING PAIN, FEVER, FACIAL SWELLING. SOFT FOOD DIET. Prescriptions: Ibuprofen [Motrin 600 mg Tablet] 600 mg PO Q8HP PRN #24 tablet PRN Reason: Penicillin V Potassium [Penicillin Vk 500 mg Tablet] 500 mg PO QID #40 tablet Oxycodone HCl/Acetaminophen [Percocet 5-325 mg Tablet] 1 tab PO Q6H PRN #10 tablet PRN Reason: Chlorhexidine Gluconate [Peridex] 15 ml MM Q6H #420 ml Referrals: FRANK NORTON MD [Primary Care Provider] - Follow up as needed [facility] [Provider Group] - Follow up in 3-5 days
== END 2020-05-10 18:58 | disposition home or self-care (01) ==
LOC: ER 17:11
DX: K02.9 Dental caries, unspecified (principal); R68.84 Jaw pain; H92.09 Otalgia, unspecified ear; R51 Headache; F17.200 Nicotine dependence, unspecified, uncomplicated
CPT/HCPCS: 99284; 96372; J1885; J3490

== ENCOUNTER 2020-06-09 19:10 | Emergency (ER) | payer MEDICAID ==
[2020-06-09] MEDS ORDERED: METOCLOPRAMIDE HCL INJ/PF 10 MG/2 ML SDV IV ONE (19:27)
[2020-06-09] MEDS ORDERED: NORMAL SALINE 1000 ML 1,000 ML IV ONE (19:27)
--- NOTE | 2020-06-09 19:30 | ER Document Report ---
ED Medical Screen (RME) - General Chief Complaint: Vomiting Stated Complaint: VOMITING/ADOMINAL PAIN Time Seen by Provider: 06/09/20 19:26 Primary Care Provider: FRANK NORTON MD [Primary Care Provider] - Follow up as needed Mode of Arrival: Wheelchair Information source: Patient Notes: HPI; 30-year-old male arrived via ambulance complaining of nausea and vomiting for the past 2 days. States he is unable to tolerate anything p.o. Complaining of some mid epigastric pain. Denies any fevers. No diarrhea. No COVID-19 exposure. Was given Zofran in route by EMS. PE: Alert and oriented x3. Lungs: Clear to auscultation without rales, rhonchi, wheezes. Heart: Regular rate rhythm without murmurs, rubs, gallops. I have greeted and performed a rapid initial assessment of this patient. A comprehensive ED assessment and evaluation of the patient, analysis of test results and completion of the medical decision making process will be conducted by additional ED providers. I have specifically instructed the patient or family members with the patient to immediately return to any nursing staff should anything change in the patient's condition or with their chief complaint. TRAVEL OUTSIDE OF THE [place] IN LAST 30 DAYS: No - Related Data Allergies/Adverse Reactions: No Known Allergies Allergy (Verified 09/22/19 17:17) Past Medical History - Past Medical History Cardiac Medical History: Denies: Hx Coronary Artery Disease, Hx Heart Attack, Hx Hypertension Pulmonary Medical History: Denies: Hx Asthma, Hx Bronchitis, Hx COPD, Hx Pneumonia Neurological Medical History: Denies: Hx Cerebrovascular Accident, Hx Seizures Renal/ Medical History: Denies: Hx Peritoneal Dialysis Musculoskeltal Medical History: Denies Hx Arthritis Psychiatric Medical History: Reports: Hx Depression - Immunizations Immunizations up to date: Yes Hx Diphtheria, Pertussis, Tetanus Vaccination: Yes Physical Exam - Vital signs Vitals: Temp Pulse Resp BP Pulse Ox 98.9 F 64 18 136/62 H 100 06/09/20 19:17 06/09/20 19:17 06/09/20 19:17 06/09/20 19:17 06/09/20 19:17 Course - Vital Signs Vital signs: Temp Pulse Resp BP Pulse Ox 98.9 F 64 18 136/62 H 100 06/09/20 19:17 06/09/20 19:17 06/09/20 19:17 06/09/20 19:17 06/09/20 19:17 Doctor's Discharge - Discharge Referrals: FRANK NORTON MD [Primary Care Provider] - Follow up as needed
[2020-06-09 20:27] LABS: ABSOLUTE LYMPHOCYTES (AUTO) 0.9 10^3/uL (0.5-4.7); ABSOLUTE MONOCYTES (AUTO) 0.6 10^3/uL (0.1-1.4); ABSOLUTE NEUT (AUTO) 6.5 10^3/uL (1.7-8.2); BASOPHILS % (AUTO) 0.4 % (0-2); HEMATOCRIT 44.6 % (37.9-51.0); HEMOGLOBIN 14.7 g/dL (13.5-17.0); MEAN CORPUSCULAR HEMOGLOBIN 27.8 pg (27.0-33.4); MEAN CORPUSCULAR HGB CONC 33.1 g/dL (32.0-36.0); MEAN CORPUSCULAR VOLUME 84 fl (80-97); MONOCYTES % (AUTO) 7.2 % (3-13); PLATELET COUNT 229 10^3/uL (150-450); RED BLOOD COUNT 5.31 10^6/uL (4.35-5.55); RED CELL DISTRIBUTION WIDTH 14.6 % (11.5-14.0); SEGMENTED NEUTROPHILS % (AUTO) 81.4 % (42-78); TOTAL CELLS COUNTED % (AUTO) 100 %
[2020-06-09] MEDS ORDERED: ONDANSETRON HCL INJ/PF 4 MG/2 ML SDV IV ONE (20:38)
[2020-06-09] MEDS ORDERED: MORPHINE SULFATE 10 MG/ML INJ IV ONE (20:38)
[2020-06-09 20:44] LABS: ALBUMIN 4.5 g/dL (3.5-5.0); ALKALINE PHOSPHATASE 121 U/L (38-126); ANION GAP 12 (5-19); ASPARTATE AMINO TRANSFERASE 27 U/L (17-59); BILIRUBIN,DIRECT 0.4 mg/dL (0.0-0.4); BILIRUBIN,TOTAL 0.8 mg/dL (0.2-1.3); BLOOD UREA NITROGEN 12 mg/dL (7-20); CALCIUM 9.7 mg/dL (8.4-10.2); CARBON DIOXIDE 28 mmol/L (22-30); CHLORIDE 99 mmol/L (98-107); GLUCOSE 105 mg/dL (75-110); POTASSIUM 3.9 mmol/L (3.6-5.0); TOTAL PROTEIN 7.2 g/dL (6.3-8.2)
--- NOTE | 2020-06-09 20:56 | ER Document Report ---
ED GI/ - General Chief Complaint: Nausea/Vomiting Stated Complaint: VOMITING/ADOMINAL PAIN Time Seen by Provider: 06/09/20 19:26 Primary Care Provider: FRANK NORTON MD [Primary Care Provider] - Follow up as needed Mode of Arrival: Wheelchair Notes: CHIEF COMPLAINT: Nausea vomiting diarrhea abdominal pain HPI: 30-year-old male presenting for nausea vomiting diarrhea and abdominal pain over the last 2 days. No fever. States he has not been able to keep anything down for the last 2 days. Reports epigastric pain. No chest pain. No shortness of breath. No fever. No lower abdominal pain. Denies drugs or alcohol ROS: See HPI - all other systems were reviewed and are otherwise negative Constitutional: no fever Eyes: no drainage, no blurred vision ENT: no runny nose, no sore throat Cardiovascular: no chest pain Resp: no SOB, no cough GI: + vomiting, + diarrhea, + abdominal pain : no dysuria Integumentary: no rash Allergy: no hives Musculoskeletal: no extremity pain or swelling Neurological: no numbness/tingling, no weakness MEDICATIONS: I agree with the patient medications as charted by the RN. ALLERGIES: I agree with the allergies as charted by the RN. PAST MEDICAL HISTORY/PAST SURGICAL HISTORY: Reviewed and agree as charted by RN. SOCIAL HISTORY: Reviewed and agree as charted by RN. FAMILY HISTORY: No significant familial comorbid conditions directly related to patient complaint EXAM: Reviewed vital signs as charted by RN. CONSTITUTIONAL: Alert and oriented and responds appropriately to questions. Well-appearing; well-nourished, mild distress secondary to nausea and discomfort HEAD: Normocephalic; atraumatic EYES: PERRL; Conjunctivae clear, sclerae non-icteric ENT: normal nose; no rhinorrhea; moist mucous membranes; pharynx without lesions noted, no uvula edema or deviation, no tonsillar hypertrophy, phonation normal NECK: Supple without meningismus; non-tender; no cervical lymphadenopathy, no masses CARD: RRR; no murmurs, no clicks, no rubs, no gallops; symmetric distal pulses RESP: Normal chest excursion without splinting or tachypnea; breath sounds clear and equal bilaterally; no wheezes, no rhonchi, no rales, pulse oximetry 98% on room air not hypoxic. ABD/GI: Normal bowel sounds; non-distended; soft, mild tenderness through the epigastric region on palpation, no rebound, no guarding; no palpable organomegaly or masses. BACK: The back appears normal and is non-tender to palpation, there is no CVA tenderness EXT: Normal ROM in all joints; non-tender to palpation; no cyanosis, no effusions, no edema SKIN: Slightly pale color for age and race; warm; dry; good turgor; no acute lesions noted NEURO: Moves all extremities equally; Motor and sensory function intact PSYCH: The patient's mood and manner are appropriate. Grooming and personal hygiene are appropriate. MDM: 30-year-old male presenting for 2 days of nausea vomiting diarrhea with epigastric pain. Mildly pale. Not tachycardic. Initial screening labs ordered via the triage process did not show acute abnormalities yet. Normal WBC count. Will hydrate, treat pain, obtain imaging to evaluate for cholecystitis or other surgical or infectious illness pathology TRAVEL OUTSIDE OF THE [place] IN LAST 30 DAYS: No - Related Data Allergies/Adverse Reactions: No Known Allergies Allergy (Verified 09/22/19 17:17) Past Medical History - General Information source: Patient - Social History Smoking Status: Never Smoker Frequency of alcohol use: None Drug Abuse: None Family History: Reviewed & Not Pertinent - Past Medical History Cardiac Medical History: Denies: Hx Coronary Artery Disease, Hx Heart Attack, Hx Hypertension Pulmonary Medical History: Denies: Hx Asthma, Hx Bronchitis, Hx COPD, Hx Pneumonia Neurological Medical History: Denies: Hx Cerebrovascular Accident, Hx Seizures Renal/ Medical History: Denies: Hx Peritoneal Dialysis Musculoskeletal Medical History: Denies Hx Arthritis Psychiatric Medical History: Reports: Hx Depression - Immunizations Immunizations up to date: Yes Hx Diphtheria, Pertussis, Tetanus Vaccination: Yes Physical Exam - Vital signs Vitals: Temp Pulse Resp BP Pulse Ox 98.9 F 64 18 136/62 H 100 06/09/20 19:17 06/09/20 19:17 06/09/20 19:17 06/09/20 19:17 06/09/20 19:17 Course - Re-evaluation Re-evalutation: 06/10/20 01:14 Patient's drug screen was positive for marijuana and opiates although he gave a urine specimen after he had received morphine for pain here. Patient's labs and imaging studies are otherwise negative this is likely either a viral etiology, he does have a Covid screen pending and will be a person under investigation for COVID-19 although may also be cyclic vomiting from marijuana use. 06/10/20 01:14 Patient is able to tolerate oral fluids will discharge home - Vital Signs Vital signs: Temp Pulse Resp BP Pulse Ox 99.8 F 58 L 20 129/71 H 99 06/09/20 21:13 06/09/20 21:13 06/09/20 21:13 06/09/20 21:13 06/09/20 21:13 - Laboratory Result Diagrams: 06/09/20 20:15 06/09/20 20:15 Laboratory results interpreted by me: 06/09/20 06/10/20 20:15 00:01 RDW 14.6 H Lymph % (Auto) 11.0 L Seg Neutrophils % 81.4 H Urine Ketones 80 H Urine Blood SMALL H Urine Urobilinogen 2.0 H Discharge - Discharge Clinical Impression: Epigastric abdominal pain, Marijuana use, Person under investigation for COVID- 19 Vomiting Qualifiers: Vomiting type: unspecified Vomiting Intractability: non-intractable Nausea presence: with nausea Qualified Code(s): R11.2 - Nausea with vomiting, unspecified Condition: Stable Disposition: HOME, SELF-CARE Instructions: COVID-19 Guidance for Persons Under Investigation, Abdominal Pain ([facility]), Vomiting ([facility]) Additional Instructions: Your lab work and imaging studies did not show acute findings. This is likely either a viral etiology or from the marijuana use. You are considered a person under investigation for COVID-19 at this time self quarantine at home for the ne xt 2 to 5 days which is how long it takes for a test to result. If you have worsening symptoms or recurrent vomiting return for reevaluation. Take Reglan for nausea or vomiting push fluids at home and avoid marijuana use Prescriptions: Metoclopramide HCl [Reglan 10 mg Tablet] 10 mg PO Q6HP PRN #20 tablet PRN Reason: Referrals: FRANK NORTON MD [Primary Care Provider] - Follow up as needed
--- NOTE | 2020-06-09 21:21 | RADIOLOGY REPORT (SQ) ---
EXAM CLINICAL INDICATION: upper abd pain. . TECHNIQUE: Contrast enhanced spiral axial CT imaging was obtained of the abdomen and pelvis with multiplanar reconstructions. This exam was performed according to our departmental dose-optimization program, which includes automated exposure control, adjustment of the mA and/or kV according to patient size and/or use of iterative reconstruction techniques. Additional delayed phase imaging COMPARISON: None. CORRELATION: None. FINDINGS: Abdomen: The lung bases are grossly clear. The heart is of normal size. No evidence of pleural or pericardial fluid. The liver is homogeneous. The gallbladder is nondistended without inflammatory change. The pancreas is unremarkable. The spleen is unremarkable. The adrenals are unremarkable. The kidneys appear grossly normal without evidence of urolithiasis or hydronephrosis. There is no evidence of free air. No free fluid. No bulky adenopathy. Abdominal aorta is nonaneurysmal. Pelvis: The bowel is nonobstructed. The bowel is unopacified with oral contrast. Pelvic contents are unremarkable. The appendix is not convincingly seen. No inflammatory change. Visualized bones are within normal limits for age. Transitional vertebrae lumbosacral junction. IMPRESSION: Artifact from the patient's arms. No acute intra-abdominal process is identified.
[2020-06-10] MEDS ORDERED: ONDANSETRON HCL INJ/PF 4 MG/2 ML SDV IV ONE (00:39)
[2020-06-10 00:51] LABS: APPEARANCE,URINE CLEAR; BILIRUBIN,URINE NEGATIVE (NEGATIVE); COLOR,URINE YELLOW; GLUCOSE, URINE NEGATIVE (NEGATIVE); KETONES,URINE 80 mg/dL (NEGATIVE); LEUKOCYTE ESTERASE,URINE NEGATIVE (NEGATIVE); NITRITE,URINE NEGATIVE (NEGATIVE); PROTEIN,URINE NEGATIVE (NEGATIVE)
[2020-06-10 00:58] LABS: URINE SPECIFIC GRAVITY > 1.060
[2020-06-10 01:10] LABS: URINE AMPHETAMINES SCREEN NEGATIVE; URINE BARBITURATES SCREEN NEGATIVE; URINE BENZODIAZEPINES SCREEN NEGATIVE; URINE COCAINE SCREEN NEGATIVE; URINE METHADONE SCREEN NEGATIVE; URINE PHENCYCLIDINE SCREEN NEGATIVE
[2020-06-10 01:12] LABS: URINE MARIJUANA (THC) SCREEN UNCONFIRMED POSITIVE
[2020-06-10] MEDS ORDERED: ONDANSETRON 4 MG TAB.RAPDIS ONE (01:44)
[2020-06-10 02:41] VITALS: BP 133/89
== END 2020-06-10 02:42 | disposition home or self-care (01) ==
LOC: ER 19:10
DX: R11.2 Nausea with vomiting, unspecified (principal); R10.13 Epigastric pain; R19.7 Diarrhea, unspecified; R23.1 Pallor; F12.10 Cannabis abuse, uncomplicated; Z20.828 Contact with and (suspected) exposure to other viral communicable diseases
CPT/HCPCS: 99285; 96361 ×2; 96374; 96375; 36415; 83690; 85025; 87635; 80053; 81001; 80307; 74177; S0119; J2765; J2270; J2405; J7030; C9803

== ENCOUNTER 2020-08-15 10:24 | Emergency (ER) | payer MEDICAID ==
[2020-08-15 12:00] LABS: ABSOLUTE LYMPHOCYTES (AUTO) 0.9 10^3/uL (0.5-4.7); ABSOLUTE MONOCYTES (AUTO) 0.5 10^3/uL (0.1-1.4); ABSOLUTE NEUT (AUTO) 10.9 10^3/uL (1.7-8.2); BASOPHILS % (AUTO) 0.3 % (0-2); EOSINOPHILS % (AUTO) 0.1 % (0-6); HEMATOCRIT 48.6 % (37.9-51.0); HEMOGLOBIN 16.3 g/dL (13.5-17.0); LYMPHOCYTES % (AUTO) 7.7 % (13-45); MEAN CORPUSCULAR HEMOGLOBIN 27.3 pg (27.0-33.4); MEAN CORPUSCULAR HGB CONC 33.6 g/dL (32.0-36.0); MEAN CORPUSCULAR VOLUME 81 fl (80-97); MONOCYTES % (AUTO) 3.7 % (3-13); PLATELET COUNT 260 10^3/uL (150-450); RED BLOOD COUNT 5.98 10^6/uL (4.35-5.55); RED CELL DISTRIBUTION WIDTH 14.6 % (11.5-14.0); SEGMENTED NEUTROPHILS % (AUTO) 88.2 % (42-78); TOTAL CELLS COUNTED % (AUTO) 100 %; WHITE BLOOD COUNT 12.3 10^3/uL (4.0-10.5)
[2020-08-15] MEDS ORDERED: MORPHINE SULFATE 10 MG/ML INJ IV ONE (12:10)
[2020-08-15] MEDS ORDERED: METOCLOPRAMIDE HCL INJ/PF 10 MG/2 ML SDV IV ONE (12:10)
--- NOTE | 2020-08-15 12:14 | ER Document Report ---
ED GI/ - General Chief Complaint: Abdominal Pain Stated Complaint: STOMACH PAIN Time Seen by Provider: 08/15/20 11:50 Primary Care Provider: FRANK NORTON MD [Primary Care Provider] - Follow up as needed Mode of Arrival: Ambulatory Information source: Patient Notes: Patient is a 30-year-old male comes emergency room complaining of onset of abdominal pain with nausea vomiting and some diarrhea since 5 PM yesterday. Patient denies any known sick contacts. States that he is unable to keep anything down and vomits up anything he drinks or eats. Patient denies any past medical history or surgical history. Patient does admit to smoking marijuana but no other narcotics or alcohol. TRAVEL OUTSIDE OF THE [place] IN LAST 30 DAYS: No - HPI Patient complains to provider of: Abdominal pain, Diarrhea, Vomiting Onset: Yesterday Timing/Duration: Sudden, Persistent, Worse Quality of pain: Achy, Cramping, Sharp Severity at maximum: Severe Severity in ED: Severe Pain Level: 5 Context: denies: Bad food, Out of the country travel, Recent trauma Location: [facility] Associated symptoms: Diarrhea, Nausea, Vomiting. denies: Dysuria, Fever, Hematuria Exacerbated by: Food Relieved by: Denies Similar symptoms previously: Yes Recently seen / treated by doctor: No - Related Data Allergies/Adverse Reactions: No Known Allergies Allergy (Verified 09/22/19 17:17) Past Medical History - General Information source: Patient - Social History Smoking Status: Current Every Day Smoker Cigarette use (# per day): Yes - Half pack Smoking Education Provided: Yes Frequency of alcohol use: None Drug Abuse: Marijuana Lives with: Family Family History: Reviewed & Not Pertinent Patient has homicidal ideation: No - Past Medical History Cardiac Medical History: Denies: Hx Coronary Artery Disease, Hx Heart Attack, Hx Hypertension Pulmonary Medical History: Denies: Hx Asthma, Hx Bronchitis, Hx COPD, Hx Pneumonia Neurological Medical History: Denies: Hx Cerebrovascular Accident, Hx Seizures Renal/ Medical History: Denies: Hx Peritoneal Dialysis Musculoskeletal Medical History: Denies Hx Arthritis Psychiatric Medical History: Reports: Hx Depression - Immunizations Immunizations up to date: Yes Hx Diphtheria, Pertussis, Tetanus Vaccination: Yes Review of Systems - Review of Systems Constitutional: No symptoms reported EENT: No symptoms reported Cardiovascular: No symptoms reported Respiratory: No symptoms reported Gastrointestinal: See HPI, Abdominal pain, Nausea, Vomiting Genitourinary: No symptoms reported Male Genitourinary: No symptoms reported Musculoskeletal: No symptoms reported Skin: No symptoms reported Hematologic/Lymphatic: No symptoms reported Neurological/Psychological: No symptoms reported -: Yes All other systems reviewed and negative Physical Exam - Vital signs Vitals: Temp Pulse Resp BP Pulse Ox 98 F 88 18 140/73 H 100 08/15/20 10:47 08/15/20 10:47 08/15/20 10:47 08/15/20 10:47 08/15/20 10:47 Interpretation: Hypertensive - Notes Notes: PHYSICAL EXAMINATION: GENERAL: Patient is a thin appearing 30-year-old male though in no apparent distress is writhing in pain on the bed indicating that he is having severe abdominal pain mostly in the left lower quadrant. HEAD: Atraumatic, normocephalic. EYES: Pupils equal round and reactive to light, extraocular movements intact, sclera anicteric, conjunctiva are normal. ENT: Nares patent, oropharynx clear without exudates. Moist mucous membranes. NECK: Normal range of motion, supple without lymphadenopathy LUNGS: Breath sounds clear to auscultation bilaterally and equal. No wheezes rales or rhonchi. HEART: Regular rate and rhythm without murmurs ABDOMEN: Examined patient's abdomen shows he has bowel sounds present all 4 quads. Patient is somewhat tympanic in all quadrants as well. But minimal distention is noted at this time. There is nonspecific tenderness with increased on the left side lower area than anywhere else on the abdomen. Musculoskeletal: Normal range of motion, no pitting or edema. No cyanosis. NEUROLOGICAL: Normal speech, normal gait. Normal sensory, motor exams PSYCH: Normal mood, normal affect. SKIN: Warm, Dry, normal turgor, no rashes or lesions noted. Course - Re-evaluation Re-evalutation: 08/15/20 16:45 Patient responded well to the Reglan and the morphine. A CT with IV contrast came back negative for any acute findings. Patient's urine came back with just some proteinuria and no infection was seen. He did display mild transaminitis as compared to other labs he had in the past although he was actively vomiting on examination. His original lactic acid came back at 2.0 but after 2 L of fluid was down to 1.8 patient is awake alert and oriented sitting up and drinking and asking for food reexamination of patient's abdomen shows it to be nontender currently to palpation bowel sounds are normal on auscultation. Patient's overall status is improved markedly. I did discuss the case with Dr. Beach and she did review his labs and CT reports and given the patient is 30 and no other comorbidities and everything else being normal this may have just been a gastritis presentation since he is gotten markedly better and agrees that discharge is appropriate at this time. Patient does see Dr. Norton and he will schedule appointment with him tomorrow. 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 - Vital Signs Vital signs: Temp Pulse Resp BP Pulse Ox 98 F 88 18 140/73 H 100 08/15/20 10:47 08/15/20 10:47 08/15/20 10:47 08/15/20 10:47 08/15/20 10:47 - Laboratory Results Result Diagrams: 08/15/20 11:50 08/15/20 11:50 Laboratory Results Interpreted: 08/15/20 08/15/20 08/15/20 11:50 11:50 13:37 WBC 12.3 H RBC 5.98 H RDW 14.6 H Lymph % (Auto) 7.7 L Absolute Neuts (auto) 10.9 H Seg Neutrophils % 88.2 H Chloride 96 L Glucose 147 H Calcium 10.9 H Alkaline Phosphatase 160 H Total Protein 9.3 H Albumin 5.4 H Lipase 22.2 L Urine Protein >=500 H Urine Ketones 80 H Urine Urobilinogen 2.0 H Critical Laboratory Results Reviewed: Yes Attending or Supervising Physician who Reviewed Labs: [place] - Transaminitis, proteinuria - Radiology Results Critical Radiology Results Reviewed: No Critical Results Discharge - Discharge Clinical Impression: Abdominal pain Qualifiers: Abdominal location: generalized Qualified Code(s): R10.84 - Generalized abdominal pain Vomiting Qualifiers: Vomiting type: unspecified Vomiting Intractability: non-intractable Nausea presence: with nausea Qualified Code(s): R11.2 - Nausea with vomiting, unspecified Disposition: HOME, SELF-CARE Instructions: Abdominal Pain ([facility]), Antinausea Medication ([facility]), Intravenous (IV) Fluids ([facility]) Additional Instructions: Home and rest. Medication as prescribed. As we discussed I would give Dr. Norton a call tomorrow to see if he can set up an appointment and possibly get another referral to GI again for reevaluation. I would do a bland diet nothing spicy or hard on the stomach for the next 24 hours and then advance it slowly. Basically I would stay on clear liquids for the next 24 hours and advance slowly should you have increasing pain or discomfort you can return to ER for reeval uation. Prescriptions: Metoclopramide HCl [Reglan 10 mg Tablet] 1 - 2 tab PO ASDIR PRN #25 tablet PRN Reason: Forms: Elevated Blood Pressure, Smoking Cessation Education, Return to Work Referrals: FRANK NORTON MD [Primary Care Provider] - Follow up as needed
[2020-08-15 12:28] LABS: ALBUMIN 5.4 g/dL (3.5-5.0); ALKALINE PHOSPHATASE 160 U/L (38-126); ANION GAP 15 (5-19); ASPARTATE AMINO TRANSFERASE 28 U/L (17-59); BILIRUBIN,DIRECT 0.3 mg/dL (0.0-0.4); BILIRUBIN,TOTAL 0.8 mg/dL (0.2-1.3); BLOOD UREA NITROGEN 19 mg/dL (7-20); CALCIUM 10.9 mg/dL (8.4-10.2); CARBON DIOXIDE 30 mmol/L (22-30); CHLORIDE 96 mmol/L (98-107); GLUCOSE 147 mg/dL (75-110); POTASSIUM 4.3 mmol/L (3.6-5.0); TOTAL PROTEIN 9.3 g/dL (6.3-8.2)
[2020-08-15] MEDS ORDERED: PIPERACILLIN/TAZOBACTAM 3.375 GM VIAL IV ONE (13:10)
[2020-08-15] MEDS ORDERED: RINGERS SOLUTION,LACTATED 1,000 ML IV ONE (13:10)
[2020-08-15 14:10] LABS: APPEARANCE,URINE SLIGHTLY-CLOUDY; BILIRUBIN,URINE NEGATIVE (NEGATIVE); COLOR,URINE YELLOW; GLUCOSE, URINE NEGATIVE (NEGATIVE); KETONES,URINE 80 mg/dL (NEGATIVE); LEUKOCYTE ESTERASE,URINE NEGATIVE (NEGATIVE); NITRITE,URINE NEGATIVE (NEGATIVE); PROTEIN,URINE >=500 mg/dL (NEGATIVE); URINE SPECIFIC GRAVITY 1.034
[2020-08-15 14:19] LABS: URINE AMPHETAMINES SCREEN NEGATIVE; URINE BARBITURATES SCREEN NEGATIVE; URINE BENZODIAZEPINES SCREEN NEGATIVE; URINE COCAINE SCREEN NEGATIVE; URINE METHADONE SCREEN NEGATIVE; URINE PHENCYCLIDINE SCREEN NEGATIVE
[2020-08-15 14:21] LABS: URINE MARIJUANA (THC) SCREEN UNCONFIRMED POSITIVE
--- NOTE | 2020-08-15 14:47 | RADIOLOGY REPORT (SQ) ---
EXAM DESCRIPTION: CT ABD/PELVIS WITH IV ONLY IMAGES COMPLETED DATE/TIME: 08/15/2020 2:34 pm REASON FOR STUDY: Abdominal pain COMPARISON: None. TECHNIQUE: CT scan of the abdomen and pelvis performed using helical scanning technique with dynamic intravenous contrast injection. No oral contrast. Images reviewed with lung, soft tissue, and bone windows. Reconstructed coronal and sagittal MPR images reviewed. Delayed images for evaluation of the urinary system also acquired. All images stored on PACS. All CT scanners at this facility use dose modulation, iterative reconstruction, and/or weight based d osing when appropriate to reduce radiation dose to as low as reasonably achievable (ALARA). [facility]: Dose Right [facility]: CareDose [facility]: Dose Right [facility]: Teradose 4D [facility]: Razer CONTRAST TYPE AND DOSE: contrast/concentration: Isovue 350.00 mmol/ml; Total Contrast Delivered: 86. 0 ml; Total Saline Delivered: 69.0 ml RENAL FUNCTION: GFR > 60. RADIATION DOSE: CT Rad equipment meets quality standard of care and radiation dose reduction techniq ues were employed. CTDIvol: 4.8 - 4.9 mGy. DLP: 506 mGy-cm.. LIMITATIONS: None. FINDINGS: LOWER CHEST: No significant findings. No nodules or infiltrates. LIVER: Normal size. No masses. No dilated ducts. SPLEEN: Normal size. No focal lesions. PANCREAS: No masses. No significant calcifications. No adjacent inflammation or peripancreatic fluid collections. Pancreatic duct not dilated. GALLBLADDER: No identified stones by CT criteria. No inflammatory changes to suggest cholecystitis. ADRENAL GLANDS: No significant masses or asymmetry. RIGHT KIDNEY AND URETER: No solid masses. No significant calcifications. No hydronephrosis or hyd roureter. LEFT KIDNEY AND URETER: No solid masses. No significant calcifications. No hydronephrosis or hydr oureter. AORTA AND VESSELS: No aneurysm. No dissection. Renal arteries, SMA, celiac without stenosis. RETROPERITONEUM: No retroperitoneal adenopathy, hemorrhage or masses. BOWEL AND PERITONEAL CAVITY: No masses or inflammatory changes. No free fluid or peritoneal masses. APPENDIX: Normal. PELVIS: No mass. No free fluid. Normal bladder. ABDOMINAL WALL: No masses. No hernias. BONES: No significant or acute findings. OTHER: No other significant finding. IMPRESSION: NO SIGNIFICANT OR ACUTE FINDING IN THE ABDOMEN OR PELVIS ON CT SCAN WITH IV CONTRAST. TECHNICAL DOCUMENTATION: JOB ID: [id number] Quality ID # [id number]: Final reports with documentation of one or more dose reduction techniques (e.g., Au tomated exposure control, adjustment of the mA and/or kV according to patient size, use of iterative reconstruction technique) 2010 [employer]- All Rights Reserved Reading location - IP/workstation name: [email or web address]
[2020-08-15 17:07] VITALS: BP 119/57
== END 2020-08-15 17:07 | disposition home or self-care (01) ==
LOC: ER 10:24
DX: R10.84 Generalized abdominal pain (principal); R11.2 Nausea with vomiting, unspecified; R19.7 Diarrhea, unspecified; F17.210 Nicotine dependence, cigarettes, uncomplicated
CPT/HCPCS: 99285; 96375; 96365; 36415; 83605; 83690; 85025; 80053; 81001; 80307; 74177; J2765; J2270; J7120; J2543

== ENCOUNTER 2020-08-17 06:41 | Emergency (ER) | payer MEDICAID ==
[2020-08-17 09:49] LABS: ABSOLUTE BASOPHILS # (AUTO) 0.1 10^3/uL (0.0-0.2); ABSOLUTE LYMPHOCYTES (AUTO) 0.9 10^3/uL (0.5-4.7); ABSOLUTE MONOCYTES (AUTO) 0.4 10^3/uL (0.1-1.4); ABSOLUTE NEUT (AUTO) 5.8 10^3/uL (1.7-8.2); BASOPHILS % (AUTO) 0.8 % (0-2); EOSINOPHILS % (AUTO) 0.1 % (0-6); HEMATOCRIT 47.2 % (37.9-51.0); HEMOGLOBIN 15.9 g/dL (13.5-17.0); LYMPHOCYTES % (AUTO) 12.8 % (13-45); MEAN CORPUSCULAR HEMOGLOBIN 27.6 pg (27.0-33.4); MEAN CORPUSCULAR HGB CONC 33.6 g/dL (32.0-36.0); MEAN CORPUSCULAR VOLUME 82 fl (80-97); MONOCYTES % (AUTO) 6.2 % (3-13); PLATELET COUNT 251 10^3/uL (150-450); RED BLOOD COUNT 5.75 10^6/uL (4.35-5.55); RED CELL DISTRIBUTION WIDTH 14.1 % (11.5-14.0); SEGMENTED NEUTROPHILS % (AUTO) 80.1 % (42-78); TOTAL CELLS COUNTED % (AUTO) 100 %; WHITE BLOOD COUNT 7.2 10^3/uL (4.0-10.5)
[2020-08-17] MEDS ORDERED: NORMAL SALINE 1000 ML 1,000 ML IV ONE (10:14)
[2020-08-17 10:15] LABS: ALBUMIN 5.1 g/dL (3.5-5.0); ALKALINE PHOSPHATASE 137 U/L (38-126); ANION GAP 13 (5-19); ASPARTATE AMINO TRANSFERASE 28 U/L (17-59); BILIRUBIN,DIRECT 0.2 mg/dL (0.0-0.4); BILIRUBIN,TOTAL 0.7 mg/dL (0.2-1.3); BLOOD UREA NITROGEN 17 mg/dL (7-20); CALCIUM 10.4 mg/dL (8.4-10.2); CARBON DIOXIDE 30 mmol/L (22-30); CHLORIDE 95 mmol/L (98-107); GLUCOSE 117 mg/dL (75-110); POTASSIUM 3.7 mmol/L (3.6-5.0); TOTAL PROTEIN 8.2 g/dL (6.3-8.2)
[2020-08-17] MEDS ORDERED: ONDANSETRON HCL INJ/PF 4 MG/2 ML SDV IV ONE (10:33)
--- NOTE | 2020-08-17 11:03 | ER Document Report ---
ED General - General Chief Complaint: Nausea/Vomiting Stated Complaint: SEVERE ABDOMINAL PAIN,VOMITING Primary Care Provider: FRANK NORTON MD [Primary Care Provider] - Follow up as needed TRAVEL OUTSIDE OF THE [place] IN LAST 30 DAYS: No - HPI Notes: Chief Complaint: Nausea vomiting, abdominal pain Historian: History obtained from patient HPI: This is a 30-year-old male presents to the ER complaining of nausea vomiting abdominal pain x2 days. He is well-known to the ER and has presented multiple times for this. Was seen in the ED 2 days ago for the same and had a negative CAT scan work-up. He does have prior diagnosis of hyperemesis related to marijuana use. Patient's pain is to the epigastric area and nonradiating. He has severe nausea. Minimal p.o. intake. I asked patient if hot showers improve his symptoms and he immediately became defensive and said "oh, were not doing this". Patient denies any prior abdominal surgeries. No change in urination or bowel function. No treatments tried at home. Patient says medication given to him last ER visit did help but does not know the name. He also requests something to help him sleep because he has not been able to sleep for the past 2 nights. Denies fever, chills, chest pain, shortness of breath, dysuria. ROS: Constitutional: no fevers. HEENT: no BELLE, sore throat, or vision changes. CV: no chest pain or palpitations. Resp: no cough or SOB. GI: abdom pain, n/v : no dysuria, hematuria, or incont. MSK: no back pain, no joint swelling/redness. Skin: no rashes or itching. Neuro: no seizures, weakness, numbness, or confusion. Hematological: no ecchymosis or easy bleeding. Endocrine: no polyuria/polydipsia, no heat/cold intolerance. Psych: no SI/HI, AH/VH or memory loss. PMHx: Reviewed and agree as charted by RN. PSHx: Reviewed and agree as charted by RN. SOCHx: Reviewed and agree as charted by RN. FHX: No significant familial comorbid conditions directly related to patient complaint Current Medications: Reviewed and agree with the patient medications as charted by the RN. Allergies: Reviewed and agree with the listed allergies as charted by the RN Physical Exam: Vitals: Reviewed in chart as documented by RN. General: Alert and in mild distress due to pain. Head: Normocephalic; atraumatic Eyes: PERRLA, Conjunctivae clear sclerae non-icteric bilat ENT: no soft palate swelling or uvular deviation Neck: trachea midline, no unilateral swelling/tenderness/lymphadenopathy CV: RRR, no M/R/G; symmetric distal pulses Resp: respirations even and unlabored, CTA bilat. GI: abd soft and nondistended. tender to epigastric area w/ voluntary guarding. normal BS. no masses/HSM. no CVAT bilat MSK: FROM of all extremities. No midline CTL spine tenderness/deformity Skin: warm, moist, good turgor. no rash/lesions Neuro: Alert and oriented X 4. following CN 2-12 intact. no unilateral weak ness/numbness Psych: No SI/HI or AH/VH. Medical Decision-Making: Medical Decision-making/Differential Diagnosis: Consider various etiologies including but not limited to canabanoid hyperemesis, cyclic vomiting, AGE, viral syndrome, dehydration, electrolyte abnormality, IBS, inflamm bowel dz, Abdominal pain, Hernia, Acute Gastritis, Appendicitis, Partial or Complete small bowel obstruction, Cholecysitis, Diverticulitis, Gastroenteritis, GERD, Nephrolithiasis, Pancreatitis, Peptic Ulcer Disease, Urinary Tract Infection, Pyelonephritis, Infection, metabolic derangement, ect plan -labs, IVF, anti-emetics, prn imaging. Pt had a negative CT abd/pelvis 2 days ago in the ER for similar complaint. Since his symptoms are recurrent, i dont feel imaging is indicated at this time. Will symptomatically treat pts pain and nausea and continue to monitor. If pt improves, will likely d/c home. This course of action was discussed with the patient and/or family. They were amenable to this, verbalized understanding, and were without further questions. - Related Data Allergies/Adverse Reactions: No Known Allergies Allergy (Verified 08/17/20 10:51) Past Medical History - Social History Smoking Status: Unknown if Ever Smoked Family History: Reviewed & Not Pertinent - Past Medical History Cardiac Medical History: Denies: Hx Coronary Artery Disease, Hx Heart Attack, Hx Hypertension Pulmonary Medical History: Denies: Hx Asthma, Hx Bronchitis, Hx COPD, Hx Pneumonia Neurological Medical History: Denies: Hx Cerebrovascular Accident, Hx Seizures Renal/ Medical History: Denies: Hx Peritoneal Dialysis Musculoskeletal Medical History: Denies Hx Arthritis Psychiatric Medical History: Reports: Hx Depression - Immunizations Immunizations up to date: Yes Hx Diphtheria, Pertussis, Tetanus Vaccination: Yes Physical Exam - Vital signs Vitals: Temp Pulse Resp BP Pulse Ox 98.8 F 84 24 H 143/88 H 98 08/17/20 06:44 08/17/20 06:44 08/17/20 06:44 08/17/20 06:44 08/17/20 06:44 Course - Re-evaluation Re-evalutation: 08/17/20 15:10 Patient continues to complain of nausea vomiting abdominal pain after receiving morphine and Zofran. Ordered Reglan, Benadryl, Toradol for patient. Reviewed his labs, patient has signs of dehydration/starvation -300 ketones in urine and is hemoconcentrated. Lipase is normal. Very small elevation of alk phos which is similar to his prior labs. Patient has had multiple work-ups for possible gallbladder etiology 08/17/20 18:17 Pt has recieved 2 liters of IVF and multiple doses of pain and nausea medications. RN states pt is sleeping when he enters room but will start c/o pain and nasuea when he wakes him up. pts symptoms are identical to prior epidoses of his cyclical vomiting. No episodes of vomiting in the past couple hours and he is now tolerated po fluids. Pt ambulates to the bathroom on his own w/o any issue. will d/c home w/ pcp f/u. return factors discussed. encouraged pt to abstain from marijuana as this is likely the caused of his symptoms. - Vital Signs Vital signs: Temp Pulse Resp BP Pulse Ox 99.4 F 67 18 118/52 L 100 08/17/20 15:51 08/17/20 15:51 08/17/20 15:51 08/17/20 15:51 08/17/20 15:51 - Laboratory Results Result Diagrams: 08/17/20 09:41 08/17/20 09:41 Laboratory Results Interpreted: 08/17/20 08/17/20 08/17/20 09:41 09:41 13:43 RBC 5.75 H RDW 14.1 H Lymph % (Auto) 12.8 L Seg Neutrophils % 80.1 H Chloride 95 L Glucose 117 H Calcium 10.4 H Alkaline Phosphatase 137 H Albumin 5.1 H Urine Protein 30 H Urine Ketones 300 H Urine Urobilinogen 2.0 H Urine Ascorbic Acid 40 H Critical Laboratory Results Reviewed: No Critical Results - Radiology Results Critical Radiology Results Reviewed: No Critical Results Discharge - Discharge Clinical Impression: Nausea & vomiting Qualifiers: Vomiting type: unspecified Vomiting Intractability: intractable Qualified Code(s): R11.2 - Nausea with vomiting, unspecified Abdominal pain Qualifiers: Abdominal location: epigastric Qualified Code(s): R10.13 - Epigastric pain Condition: Stable Disposition: HOME, SELF-CARE Instructions: Nausea or Vomiting, Nonspecific ([facility]) Prescriptions: Promethazine HCl [Phenergan 25 mg Tablet] 1 - 2 tab PO Q6H PRN #15 tablet PRN Reason: Referrals: FRANK NORTON MD [Primary Care Provider] - Follow up as needed
[2020-08-17] MEDS ORDERED: MORPHINE SULFATE 10 MG/ML INJ IV PRN (11:06)
[2020-08-17 14:06] LABS: AMORPHOUS SEDIMENT,URINE TRACE /HPF
[2020-08-17 14:13] LABS: COLOR,URINE YELLOW
[2020-08-17 14:14] LABS: APPEARANCE,URINE SLIGHTLY HAZY; BILIRUBIN,URINE NEGATIVE (NEGATIVE); GLUCOSE, URINE NEGATIVE (NEGATIVE); KETONES,URINE 300 mg/dL (NEGATIVE); URINE SPECIFIC GRAVITY 1.029
[2020-08-17 14:18] LABS: LEUKOCYTE ESTERASE,URINE NEGATIVE (NEGATIVE); NITRITE,URINE NEGATIVE (NEGATIVE); PROTEIN,URINE 30 mg/dL (NEGATIVE)
[2020-08-17] MEDS ORDERED: KETOROLAC TROMETHAMINE INJ/PF 30 MG/1 ML SDV IV ONE (14:27)
[2020-08-17] MEDS ORDERED: METOCLOPRAMIDE HCL INJ/PF 10 MG/2 ML SDV IV ONE (14:27)
[2020-08-17] MEDS ORDERED: DIPHENHYDRAMINE HCL 50 MG/ML VIAL IV ONE (14:27)
[2020-08-17] MEDS ORDERED: RINGERS SOLUTION,LACTATED 1,000 ML IV ONE (14:28)
[2020-08-17] MEDS ORDERED: ONDANSETRON ODT 4 MG TAB (6 TAB/ER DISP) PO PRN (18:41)
[2020-08-17 19:16] VITALS: BP 114/55
== END 2020-08-17 19:04 | disposition home or self-care (01) ==
LOC: ER 06:41
DX: R11.2 Nausea with vomiting, unspecified (principal); R10.13 Epigastric pain; R10.816 Epigastric abdominal tenderness; R74.8 Abnormal levels of other serum enzymes
CPT/HCPCS: 99284; 96361; 96374; 96375; 36415; 83690; 85025; 80053; 81001; J1200; J1885; J2765; J2405; J7030; J7120

== ENCOUNTER 2020-08-21 13:17 | Emergency (ER) | payer MEDICAID ==
[2020-08-21] MEDS ORDERED: ONDANSETRON 4 MG TAB.RAPDIS PO ONE (15:04)
--- NOTE | 2020-08-21 15:06 | ER Document Report ---
ED Medical Screen (RME) - General Chief Complaint: Nausea/Vomiting Stated Complaint: NAUSEA VOMITTING ABDOMINAL PAIN Time Seen by Provider: 08/21/20 14:56 Primary Care Provider: FRANK NORTON MD [Primary Care Provider] - Follow up as needed Information source: Patient TRAVEL OUTSIDE OF THE [place] IN LAST 30 DAYS: No - HPI Patient complains to provider of: Abdo Pain Notes: 08/21/20 15:05 Patient here with complaints of some upper abdominal pain. Seems to be a chronic problem for the patient. Is been seen multiple times in the ER for this. He was seen here approximately 5 days ago with a negative work-up including a CAT scan. States that he is not able to keep any food down and feels dehydrated. He states that he needs a referral to GI. He denies any other complaints at this time. Exam: Nontoxic, no distress. Mild epigastric tenderness on limited triage abdominal exam. No respiratory distress. An initial examination was made on the patient as part of the triage process, and it was determined a more comprehensive evaluation was necessary. Initial labs were ordered and patient was transferred to another provider in the ED who assumed care and finished evaluation and plan. - Related Data Allergies/Adverse Reactions: No Known Allergies Allergy (Verified 08/17/20 10:51) Past Medical History - Social History Chew tobacco use (# tins/day): No Frequency of alcohol use: None Drug Abuse: None - Past Medical History Cardiac Medical History: Denies: Hx Coronary Artery Disease, Hx Heart Attack, Hx Hypertension Pulmonary Medical History: Denies: Hx Asthma, Hx Bronchitis, Hx COPD, Hx Pneumonia Neurological Medical History: Denies: Hx Cerebrovascular Accident, Hx Seizures Renal/ Medical History: Denies: Hx Peritoneal Dialysis Musculoskeltal Medical History: Denies Hx Arthritis Psychiatric Medical History: Reports: Hx Depression - Immunizations Immunizations up to date: Yes Hx Diphtheria, Pertussis, Tetanus Vaccination: Yes Physical Exam - Vital signs Vitals: Temp Pulse Resp BP Pulse Ox 98.5 F 86 20 146/101 H 98 08/21/20 13:51 08/21/20 13:51 08/21/20 13:51 08/21/20 13:51 08/21/20 13:51 Course - Vital Signs Vital signs: Temp Pulse Resp BP Pulse Ox 98.5 F 86 20 146/101 H 98 08/21/20 13:51 08/21/20 13:51 08/21/20 13:51 08/21/20 13:51 08/21/20 13:51 Doctor's Discharge - Discharge Referrals: FRANK NORTON MD [Primary Care Provider] - Follow up as needed
[2020-08-21 16:32] LABS: ABSOLUTE BASOPHILS # (AUTO) 0.1 10^3/uL (0.0-0.2); ABSOLUTE LYMPHOCYTES (AUTO) 2.5 10^3/uL (0.5-4.7); ABSOLUTE MONOCYTES (AUTO) 0.5 10^3/uL (0.1-1.4); ABSOLUTE NEUT (AUTO) 2.6 10^3/uL (1.7-8.2); BASOPHILS % (AUTO) 0.9 % (0-2); EOSINOPHILS % (AUTO) 0.4 % (0-6); HEMATOCRIT 51.5 % (37.9-51.0); LYMPHOCYTES % (AUTO) 43.3 % (13-45); MEAN CORPUSCULAR HEMOGLOBIN 27.2 pg (27.0-33.4); MEAN CORPUSCULAR VOLUME 82 fl (80-97); PLATELET COUNT 240 10^3/uL (150-450); RED BLOOD COUNT 6.25 10^6/uL (4.35-5.55); RED CELL DISTRIBUTION WIDTH 13.8 % (11.5-14.0); SEGMENTED NEUTROPHILS % (AUTO) 46.4 % (42-78); TOTAL CELLS COUNTED % (AUTO) 100 %; WHITE BLOOD COUNT 5.7 10^3/uL (4.0-10.5)
[2020-08-21 16:46] LABS: ALBUMIN 4.9 g/dL (3.5-5.0); ALKALINE PHOSPHATASE 131 U/L (38-126); ANION GAP 11 (5-19); ASPARTATE AMINO TRANSFERASE 28 U/L (17-59); BILIRUBIN,DIRECT 0.1 mg/dL (0.0-0.4); BILIRUBIN,TOTAL 0.9 mg/dL (0.2-1.3); BLOOD UREA NITROGEN 16 mg/dL (7-20); CALCIUM 10.3 mg/dL (8.4-10.2); CARBON DIOXIDE 30 mmol/L (22-30); CHLORIDE 90 mmol/L (98-107); GLUCOSE 91 mg/dL (75-110); POTASSIUM 4.7 mmol/L (3.6-5.0); TOTAL PROTEIN 8.2 g/dL (6.3-8.2)
[2020-08-21] MEDS ORDERED: DICYCLOMINE HCL 10 MG CAPSULE PO ONE (18:34)
--- NOTE | 2020-08-21 18:37 | ER Document Report ---
Entered by JOJO NICE SCRIBE 08/21/20 1829 Acting as scribe for:NOY MEDINA DO ED GI/ - General Chief Complaint: Nausea/Vomiting Stated Complaint: NAUSEA VOMITTING ABDOMINAL PAIN Time Seen by Provider: 08/21/20 14:56 Primary Care Provider: FEDERICA SANTILLAN MD [ACTIVE STAFF] - 08/22/20 FRANK NORTON MD [Primary Care Provider] - Follow up as needed Mode of Arrival: Ambulatory Information source: Patient Notes: This 30-year-old male patient with multiple visits to the ER for complaints of nausea and vomiting who has been diagnosed with cyclic vomiting related to marijuana presents today for complaints of continued nausea and vomiting. Patient reports that he thinks is nausea and vomiting is related to "air getting trapped in his stomach". Patient had an unremarkable abdomen/pelvis CT done here a few days ago on 08/15/2020. He mentions he has also lost his taste the last few days and he has had the "throat sniffles". He denies fevers or cough. TRAVEL OUTSIDE OF THE [place] IN LAST 30 DAYS: No - Related Data Allergies/Adverse Reactions: No Known Allergies Allergy (Verified 08/17/20 10:51) Past Medical History - General Information source: Patient - Social History Smoking Status: Former Smoker Cigarette use (# per day): No Chew tobacco use (# tins/day): No Frequency of alcohol use: None Drug Abuse: None Lives with: Family Family History: Reviewed & Not Pertinent Psychiatric Medical History: Reports: Hx Depression Surgical Hx: Negative - Immunizations Immunizations up to date: Yes Hx Diphtheria, Pertussis, Tetanus Vaccination: Yes Review of Systems - Review of Systems Constitutional: See HPI. denies: Fever EENT: No symptoms reported Cardiovascular: No symptoms reported Respiratory: denies: Cough Gastrointestinal: See HPI, Nausea, Vomiting Genitourinary: No symptoms reported Male Genitourinary: No symptoms reported Musculoskeletal: No symptoms reported Skin: No symptoms reported Hematologic/Lymphatic: No symptoms reported Neurological/Psychological: No symptoms reported -: Yes All other systems reviewed and negative Physical Exam - Vital signs Vitals: Temp Pulse Resp BP Pulse Ox 98.5 F 86 20 146/101 H 98 08/21/20 13:51 08/21/20 13:51 08/21/20 13:51 08/21/20 13:51 08/21/20 13:51 - Notes Notes: Physical Exam: General: Alert, appears well. HEENT: Normocephalic. Atraumatic. PERRL. Extraocular movements intact. Oropharynx clear. Neck: Supple. Non-tender. Respiratory: No respiratory distress. Clear and equal breath sounds bilaterally. Cardiovascular: Regular rate and rhythm. Abdominal: Normal Inspection. Non-tender. No distension. Normal Bowel Sounds. Back: No gross abnormalities. Extremities: Moves all four extremities. Upper extremities: Significant clubbing of the nails bilaterally Lower extremities: Normal inspection. No edema. Normal ROM. Neurological: Normal cognition. AAOx4. Normal speech. Psychological: Normal affect. Normal Mood. Skin: Warm. Dry. Normal color. Course - Re-evaluation Re-evalutation: 08/21/20 18:31 MDM 30 year old arrives via EMS with nausea and thc use routinely. Multiple visits for similar and ct in last week is reviewed. He is nontoxic and exam is reassuring. He would like referral for GI doctor and we will do that. - Vital Signs Vital signs: Temp Pulse Resp BP Pulse Ox 98.5 F 82 18 138/98 H 100 08/21/20 13:51 08/21/20 19:04 08/21/20 19:04 08/21/20 19:04 08/21/20 19:04 - Laboratory Results Result Diagrams: 08/21/20 10:55 08/21/20 10:55 Laboratory Results Interpreted: 08/21/20 08/21/20 10:55 10:55 RBC 6.25 H Hct 51.5 H Sodium 131.2 L Chloride 90 L Calcium 10.3 H Alkaline Phosphatase 131 H Critical Laboratory Results Reviewed: No Critical Results - Radiology Results Critical Radiology Results Reviewed: No Critical Results Discharge - Discharge Clinical Impression: Abdominal pain Qualifiers: Abdominal location: epigastric Qualified Code(s): R10.13 - Epigastric pain Nausea & vomiting Qualifiers: Vomiting type: unspecified Vomiting Intractability: non-intractable Qualified Code(s): R11.2 - Nausea with vomiting, unspecified Disposition: HOME, SELF-CARE Instructions: COVID-19 Guidance for Persons Under Investigation, Abdominal Pain ([facility]), Antispasmodics ([facility]) Additional Instructions: Stop using marijuiania Self isolate as you are under investigation for covid. Clear liquids for 24 hours. Return here for abdominal pain, fever other problems or other concerns. Call [facility] in follow up. _ Dr. Santillan Medicine has been sent to [facility]. Prescriptions: Dicyclomine HCl [Bentyl 10 mg Capsule] 1 cap PO TID #30 cap Sucralfate [Carafate 1 gm Tablet] 1 gm PO ACHS #40 tablet Referrals: FRANK NORTON MD [Primary Care Provider] - Follow up as needed FEDERICA ASNTILLAN MD [ACTIVE STAFF] - 08/22/20 I personally performed the services described in the documentation, reviewed and edited the documentation which was dictated to the scribe in my presence, and it accurately records my words and actions.
[2020-08-21 19:05] VITALS: BP 138/98
== END 2020-08-21 19:05 | disposition home or self-care (01) ==
LOC: ER 13:17
DX: R11.2 Nausea with vomiting, unspecified (principal); R10.13 Epigastric pain; R10.9 Unspecified abdominal pain; R11.15 Cyclical vomiting syndrome unrelated to migraine; R43.9 Unspecified disturbances of smell and taste; R05 Cough; Z87.891 Personal history of nicotine dependence
CPT/HCPCS: 99283; 36415; 83690; 85025; 87635; 80053; J3490; C9803